=== PATIENT | male | born 1935 | race Caucasian/White ===

== ENCOUNTER 2025-06-02 13:03 | Inpatient (IN) | payer OTHER, SELFPAY ==
[2025-06-01] VITALS (16 sets, daily range): BP systolic 94–124; BP diastolic 49–78; BMI 25.2
[2025-06-01 11:33] LABS: Hematocrit 40.1 % (39.0-52.0); Hemoglobin 13.0 g/dL (13.0-18.0); Mean Corp Hgb Conc. 32.4 g/dL (33.0-37.0); Mean Corpuscular Volume 86.6 fL (80.0-94.0); Nucleated Red Blood Cells % 0 % (-); Platelet Count 400 10^3/uL (130-400); Red Cell Dist. Width 14.5 % (11.5-14.5)
--- NOTE | 2025-06-01 11:36 | ED.GENMED ---
History of Present Illness
<STELLA Ambrocio - Last Filed: 06/07/25 21:26>
General
Chief Complaint: Failure to Thrive
Source: patient and family
Exam Limitations: none
Time Seen by Provider: 06/01/25 11:00
Nursing documentation reviewed up to this point in time: agreed with
History of Present Illness
History of Present Illness:
Patient is an 89-year-old male with past with history of A-fib on Eliquis CHF CAD hypertension hyperlipidemia SD presents to the ER for evaluation of weakness. Patient is for gradual weakness for the past 4 days. No appetite. He denies any fever
chills cough. He denies any urinary frequency urgency. Family also notes that he has been little bit short of breath and he reports some dyspnea on exertion. He denies any lower extremity swelling. He is also in physical therapy for balance
issues and has had some soreness in his bilateral chest and ribs. This started after they started exercises with weights using his upper body.
He reports that he is sore when he takes a deep breath and moves however has no pain at rest.
Phy Exam
<STELLA Ambrocio - Last Filed: 06/07/25 21:26>
General Physical Exam
General Presentation: no apparent distress
General age: appears stated age
General Skin: warm and dry
General Habitus: normal
Cardiovascular Exam
Cardiovascular Exam: irregularly irregular
Pulmonary Exam
Pulmonary Exam: lungs clear and no respiratory distress
Neurological Exam
Neurological Exam: alert
Musculoskeletal Exam
Musculoskeletal Exam: full ROM and other (No lower extremity swelling)
Skin Exam
Skin Exam: normal color and warm/dry
Psychiatric Exam
Psychiatric Exam: normal mood/affect
Course
<STELLA Ambrocio - Last Filed: 06/07/25 21:26>
Orders/Labs/Results
Orders:
Orders
06/01/25 11:24
Basic Metabolic Panel Urgent
Complete Blood Count/With Diff Urgent
06/01/25 11:44
Chest [CR Chest - 2 Views ] Urgent
Comment:
Reason For Exam: cp
06/01/25 12:40
NT-proBNP Urgent
Potassium Urgent
Troponin I Urgent
06/01/25 14:06
Add On- LAB Urgent
Tests Added?: cardiac BNP
06/01/25 14:12
0.9% Sodium Chloride 250 ml [Nss] 250 ml IV BOLUS
06/01/25 14:34
UA Reflex to Culture [Urinalysis Reflex To Culture] Urgent
Date Specimen was Collected: 06/01/25
Time Specimen was Collected: 14:15
Urine Microscopic Reflex Cult Urgent
06/01/25 Dinner
Cholesterol Lowering
At Your Request: Limited Participation
Does patient need a safe tray?: No
Cholesterol Lowering: Sodium, 2 Gram
Oral Supplement (If unsure of flavor order apple or vanilla): Ensure Enlive Vanilla
Supplement Frequency: Daily
06/01/25 17:23
Furosemide [Lasix] 20 mg IV NOW STA
06/01/25 18:25
EKG [Electrocardiogram (*1)] Urgent
Reason for Study: Atrial Fibrillation
06/01/25 18:33
Admit/Transfer Patient As Directed
Co-Sign Provider:
Level of Care: Observation services
Assign to:: Telemetry
Physician / Group: Kena Parikh
Diagnosis: congestive heart failure exacerbation
Reason for Telemetry: Acute Heart Failure
Date to Stop Telemetry: 06/04/25
Time to Stop Telemetry: 11:00
PRN Pain Medication Management As Directed
May give lesser potent ordered pain med per pt: Yes
preference::
Protocol:: Medication orders for pain may be administered in a
manner that supports deferring to patient preference
when the pt is:
- Requesting an ordered lesser potent pain medication.
Least to most potent pain medications are defined
as: acetaminophen < NSAID < tramadol < opioids
(morphine, oxycodone, hydromorphone).
- Requesting a lesser dose of the same medication IF
ORDERED.
- Requesting a less intrusive route of administration
if both routes are prescribed by the provider (PO <
IV).
06/01/25 18:35
Code Status As Directed
Resuscitation Status: Do not resuscitate
Reached after discussion with pt or family/Healthcare POA: Yes
Decision communicated with: patient and family
DNR Bracelet Application ONCE
06/01/25 21:04
Apixaban [Eliquis] 2.5 mg PO BID
06/01/25 21:04
CARDIOLOGY CONSULT Routine
Consulting Provider: Ulices Marie
Was physician already notified: Yes
HF DIETARY CONSULT Routine
HF EDUCATOR CONSULT Routine
Comment:
Activity As Directed
Activity Level: With Assistance
Intake/ Output As Directed
Frequency: Per unit guidelines
Patient Education As Directed
Type: CHF folder
Comment: give on admission. Document in Interdisciplinary Education record
Records Request [Obtain Records] As Directed
Dates of Information to be Released: 2024
Type of Information Requested: Last Office Visit H&P
Obtain Records from: Dr. Camacho with [facility]
Sleep Apnea Assessment by RN As Directed
Comment:
Physician Instructions:
Vital Signs As Directed
Frequency: Per unit guidelines
Weight As Directed
Frequency: Daily
Type of Scale: Standing Scale
Comment: Daily morning weight. If unable to stand, use balanced bed scale.
Weight As Directed
Frequency: Once
Type of Scale: Standing Scale
Comment: Upon Admission. If unable to stand, use balanced bed scale.
Pulse Ox/cont/shift [RESP] Routine
Quantity: 1
Special Instructions: Daily pulse oximetry at rest. If greater than 92% at rest also obtain pulse oximetry
while ambulating as tolerated.
06/01/25 21:51
Pt Screening Request from [facility] Routine
06/01/25 21:52
DIETARY IP CONSULT Routine
Reason for Consult: weight loss, loss of appetite
06/01/25 22:00
Latanoprost [Xalatan Ophthalmic Solution] 1 drop BOTH EYES HS
Timolol Maleate 0.5% [Timoptic 0.5% Ophthalmic Solution] See Dose Instructions OPHTH BID
06/02/25 07:17
Basic Metabolic Panel IN AM
Cardiovascular Evaluation IN AM
06/02/25 08:00
Atorvastatin [Lipitor] 40 mg PO DAILY
FOLic ACID [Folvite] 1 mg PO DAILY
Furosemide [Lasix] 20 mg IV DAILY
06/02/25 09:27
Echo 2D MMode Color/Doppler Routine
Reason for Study: hx CHF, murmur
06/02/25 12:16
Sps Sodium Polystyrene Sulfon [Kayexalate Suspension] 15 grams PO NOW STA
Pt Eval And Treat Routine
Activity Level: As Tolerated
06/02/25 12:20
CT Chest W/o Iv Contrast Routine
Comment:
Reason For Exam: sob, CXR with opacity
Sodium Bicarbonate 650 mg PO TID
06/02/25 12:36
Inpatient/Observation Status Change [Level of Care Change] As Directed
Level of Care: Inpatient admission
Reason for Hospitalization: Ambulatory dysfunction, CHF, possible pleural effusion, hyperkalemia
Expected length of stay greater than two midnights?: Yes
ELOS- Estimated Length of Stay in days: 3
I certify the patient meets the requirements for IP care: Yes
06/02/25 18:00
Aspirin Low Dose EC [Aspir Low (Enteric Coated)] 81 mg PO QPM
Sertraline HCl [Zoloft] 12.5 mg PO QPM
netarsudil [Rhopressa] 1 drop BOTH EYES QPM
06/02/25 21:40
BMP [Basic Metabolic Panel] Routine
06/02/25 22:00
Dorzolamide HCl [Trusopt 2% Ophthalmic Solution] See Dose Instructions BOTH EYES BID
06/03/25 07:59
Basic Metabolic Panel IN AM
Complete Blood Count/With Diff IN AM
06/04/25 06:28
Complete Blood Count/With Diff IN AM
06/04/25 11:00
DC Protocol for Telemetry ONCE
06/05/25 07:01
Complete Blood Count/With Diff IN AM
06/06/25 08:54
Basic Metabolic Panel IN AM
Complete Blood Count/With Diff IN AM
Abnormal Lab Results
06/01/25 06/01/25 06/01/25
11:24 12:40 14:34
RBC 4.63 L 10^6/uL
(4.70-6.10)
MCHC 32.4 L g/dL
(33.0-37.0)
Abs Immat Gran (auto) 0.1 H 10^3/uL
(0-0.05)
Absolute Neuts (auto) 8.5 H 10^3/uL
(1.4-6.5)
Absolute Lymphs (auto) 0.7 L 10^3/uL
(1.2-3.4)
Absolute Monos (auto) 1.3 H 10^3/uL
(0.1-0.6)
Immature Gran % 0.9 H %
(0-0.5)
Neutrophils % 79.5 H %
(42.2-75.2)
Lymphocytes % 6.9 L %
(20.5-51.1)
Monocytes % 12.1 H %
(1.7-9.3)
Sodium 134 L mmol/L
(135-145)
Potassium 5.4 H mmol/L
(3.5-5.1)
Chloride 108 H mmol/L
(98-107)
Carbon Dioxide 17 L mmol/L
(22-30)
BUN 35 H mg/dl
(9-20)
Creatinine
Glucose 138 H mg/dl
(70-99)
Urine Bacteria (Reflex) Few A
(Negative)
Urine Glucose 4+ A
(Negative)
Urine Albumin (Reflex) 1+ A
(Neg - Trace)
06/02/25
07:17
RBC
MCHC
Abs Immat Gran (auto)
Absolute Neuts (auto)
Absolute Lymphs (auto)
Absolute Monos (auto)
Immature Gran %
Neutrophils %
Lymphocytes %
Monocytes %
Sodium 133 L mmol/L
(135-145)
Potassium 5.7 H mmol/L
(3.5-5.1)
Chloride 108 H mmol/L
(98-107)
Carbon Dioxide 16 L mmol/L
(22-30)
BUN 37 H mg/dl
(9-20)
Creatinine 1.4 H mg/dL
(0.7-1.3)
Glucose 135 H mg/dl
(70-99)
Urine Bacteria (Reflex)
Urine Glucose
Urine Albumin (Reflex)
06/01/25 11:24
06/02/25 07:17
Vital Signs
Initial and Last Documented VS:
Initial Vital Signs
Temp Pulse Resp BP Pulse Ox
98.5 F 84 16 108/69 96
06/01/25 09:40 06/01/25 09:40 06/01/25 09:40 06/01/25 09:40 06/01/25 09:40
Last Documented Vital Signs
Temp Pulse Resp BP Pulse Ox
97.5 F 92 20 96/61 95
06/07/25 19:09 06/07/25 19:15 06/07/25 19:15 06/07/25 18:00 06/07/25 19:15
<Aileen Middleton PA-C - Last Filed: 06/01/25 19:06>
Orders/Labs/Results
Orders:
Orders
06/01/25 11:24
Basic Metabolic Panel Urgent
Complete Blood Count/With Diff Urgent
06/01/25 11:44
Chest [CR Chest - 2 Views ] Urgent
Comment:
Reason For Exam: cp
06/01/25 12:40
NT-proBNP Urgent
Potassium Urgent
Troponin I Urgent
06/01/25 14:06
Add On- LAB Urgent
Tests Added?: cardiac BNP
06/01/25 14:12
0.9% Sodium Chloride 250 ml [Nss] 250 ml IV BOLUS
06/01/25 14:34
UA Reflex to Culture [Urinalysis Reflex To Culture] Urgent
Date Specimen was Collected: 06/01/25
Time Specimen was Collected: 14:15
Urine Microscopic Reflex Cult Urgent
06/01/25 Dinner
Cholesterol Lowering
At Your Request: Limited Participation
Does patient need a safe tray?: No
Cholesterol Lowering: Sodium, 2 Gram
Oral Supplement (If unsure of flavor order apple or vanilla): Ensure Enlive Vanilla
Supplement Frequency: Daily
06/01/25 17:23
Furosemide [Lasix] 20 mg IV NOW STA
06/01/25 18:25
EKG [Electrocardiogram (*1)] Urgent
Reason for Study: Atrial Fibrillation
06/01/25 18:33
Admit/Transfer Patient As Directed
Co-Sign Provider:
Level of Care: Observation services
Assign to:: Telemetry
Physician / Group: Kena Parikh
Diagnosis: congestive heart failure exacerbation
Reason for Telemetry: Acute Heart Failure
Date to Stop Telemetry: 06/04/25
Time to Stop Telemetry: 11:00
PRN Pain Medication Management As Directed
May give lesser potent ordered pain med per pt: Yes
preference::
Protocol:: Medication orders for pain may be administered in a
manner that supports deferring to patient preference
when the pt is:
- Requesting an ordered lesser potent pain medication.
Least to most potent pain medications are defined
as: acetaminophen < NSAID < tramadol < opioids
(morphine, oxycodone, hydromorphone).
- Requesting a lesser dose of the same medication IF
ORDERED.
- Requesting a less intrusive route of administration
if both routes are prescribed by the provider (PO <
IV).
06/01/25 18:35
Code Status As Directed
Resuscitation Status: Do not resuscitate
Reached after discussion with pt or family/Healthcare POA: Yes
Decision communicated with: patient and family
DNR Bracelet Application ONCE
06/01/25 21:04
Apixaban [Eliquis] 2.5 mg PO BID
06/01/25 21:04
CARDIOLOGY CONSULT Routine
Consulting Provider: Ulices Marie
Was physician already notified: Yes
HF DIETARY CONSULT Routine
HF EDUCATOR CONSULT Routine
Comment:
Activity As Directed
Activity Level: With Assistance
Intake/ Output As Directed
Frequency: Per unit guidelines
Patient Education As Directed
Type: CHF folder
Comment: give on admission. Document in Interdisciplinary Education record
Records Request [Obtain Records] As Directed
Dates of Information to be Released: 2024
Type of Information Requested: Last Office Visit H&P
Obtain Records from: Dr. Camacho with [facility]
Sleep Apnea Assessment by RN As Directed
Comment:
Physician Instructions:
Vital Signs As Directed
Frequency: Per unit guidelines
Weight As Directed
Frequency: Daily
Type of Scale: Standing Scale
Comment: Daily morning weight. If unable to stand, use balanced bed scale.
Weight As Directed
Frequency: Once
Type of Scale: Standing Scale
Comment: Upon Admission. If unable to stand, use balanced bed scale.
Pulse Ox/cont/shift [RESP] Routine
Quantity: 1
Special Instructions: Daily pulse oximetry at rest. If greater than 92% at rest also obtain pulse oximetry
while ambulating as tolerated.
06/01/25 21:51
Pt Screening Request from [facility] Routine
06/01/25 21:52
DIETARY IP CONSULT Routine
Reason for Consult: weight loss, loss of appetite
06/01/25 22:00
Latanoprost [Xalatan Ophthalmic Solution] 1 drop BOTH EYES HS
Timolol Maleate 0.5% [Timoptic 0.5% Ophthalmic Solution] See Dose Instructions OPHTH BID
06/02/25 07:17
Basic Metabolic Panel IN AM
Cardiovascular Evaluation IN AM
06/02/25 08:00
Atorvastatin [Lipitor] 40 mg PO DAILY
FOLic ACID [Folvite] 1 mg PO DAILY
Furosemide [Lasix] 20 mg IV DAILY
06/02/25 09:27
Echo 2D MMode Color/Doppler Routine
Reason for Study: hx CHF, murmur
06/02/25 12:16
Sps Sodium Polystyrene Sulfon [Kayexalate Suspension] 15 grams PO NOW STA
Pt Eval And Treat Routine
Activity Level: As Tolerated
06/02/25 12:20
CT Chest W/o Iv Contrast Routine
Comment:
Reason For Exam: sob, CXR with opacity
Sodium Bicarbonate 650 mg PO TID
06/02/25 12:36
Inpatient/Observation Status Change [Level of Care Change] As Directed
Level of Care: Inpatient admission
Reason for Hospitalization: Ambulatory dysfunction, CHF, possible pleural effusion, hyperkalemia
Expected length of stay greater than two midnights?: Yes
ELOS- Estimated Length of Stay in days: 3
I certify the patient meets the requirements for IP care: Yes
06/02/25 18:00
Aspirin Low Dose EC [Aspir Low (Enteric Coated)] 81 mg PO QPM
Sertraline HCl [Zoloft] 12.5 mg PO QPM
netarsudil [Rhopressa] 1 drop BOTH EYES QPM
06/02/25 21:40
BMP [Basic Metabolic Panel] Routine
06/02/25 22:00
Dorzolamide HCl [Trusopt 2% Ophthalmic Solution] See Dose Instructions BOTH EYES BID
06/03/25 07:59
Basic Metabolic Panel IN AM
Complete Blood Count/With Diff IN AM
06/04/25 06:28
Complete Blood Count/With Diff IN AM
06/04/25 11:00
DC Protocol for Telemetry ONCE
06/05/25 07:01
Complete Blood Count/With Diff IN AM
06/06/25 08:54
Basic Metabolic Panel IN AM
Complete Blood Count/With Diff IN AM
Abnormal Lab Results
06/01/25 06/01/25 06/01/25
11:24 12:40 14:34
RBC 4.63 L 10^6/uL
(4.70-6.10)
MCHC 32.4 L g/dL
(33.0-37.0)
Abs Immat Gran (auto) 0.1 H 10^3/uL
(0-0.05)
Absolute Neuts (auto) 8.5 H 10^3/uL
(1.4-6.5)
Absolute Lymphs (auto) 0.7 L 10^3/uL
(1.2-3.4)
Absolute Monos (auto) 1.3 H 10^3/uL
(0.1-0.6)
Immature Gran % 0.9 H %
(0-0.5)
Neutrophils % 79.5 H %
(42.2-75.2)
Lymphocytes % 6.9 L %
(20.5-51.1)
Monocytes % 12.1 H %
(1.7-9.3)
Sodium 134 L mmol/L
(135-145)
Potassium 5.4 H mmol/L
(3.5-5.1)
Chloride 108 H mmol/L
(98-107)
Carbon Dioxide 17 L mmol/L
(22-30)
BUN 35 H mg/dl
(9-20)
Creatinine
Glucose 138 H mg/dl
(70-99)
Urine Bacteria (Reflex) Few A
(Negative)
Urine Glucose 4+ A
(Negative)
Urine Albumin (Reflex) 1+ A
(Neg - Trace)
06/02/25
07:17
RBC
MCHC
Abs Immat Gran (auto)
Absolute Neuts (auto)
Absolute Lymphs (auto)
Absolute Monos (auto)
Immature Gran %
Neutrophils %
Lymphocytes %
Monocytes %
Sodium 133 L mmol/L
(135-145)
Potassium 5.7 H mmol/L
(3.5-5.1)
Chloride 108 H mmol/L
(98-107)
Carbon Dioxide 16 L mmol/L
(22-30)
BUN 37 H mg/dl
(9-20)
Creatinine 1.4 H mg/dL
(0.7-1.3)
Glucose 135 H mg/dl
(70-99)
Urine Bacteria (Reflex)
Urine Glucose
Urine Albumin (Reflex)
06/01/25 11:24
06/02/25 07:17
Vital Signs
Initial and Last Documented VS:
Initial Vital Signs
Temp Pulse Resp BP Pulse Ox
98.5 F 84 16 108/69 96
06/01/25 09:40 06/01/25 09:40 06/01/25 09:40 06/01/25 09:40 06/01/25 09:40
Last Documented Vital Signs
Temp Pulse Resp BP Pulse Ox
97.5 F 92 20 96/61 95
06/07/25 19:09 06/07/25 19:15 06/07/25 19:15 06/07/25 18:00 06/07/25 19:15
<STELLA Ambrocio - Last Filed: 06/07/25 21:26>
MDM/Problems Addressed
MDM/Problems Addressed:
89-year-old male presents from home with family. Patient has had increasing weakness over the past several days. He is in therapy for balance issues and has noted to be weak over the past several days associate with decreased appetite and
decreased p.o. intake. In addition patient was been working with weights and has had some soreness in his chest. No recent fever or chills he denies any urinary symptoms he is afebrile with normal white count stable hemoglobin stable. His BUN is
minimally elevated though he does have a history of CHF. small 250 ml fluid bolus ordered. There is pleural effusion on x-ray. His troponin is negative. Currently BMP and urine pending at this time patient will likely need admission for weakness
deconditioning dehydration. Chest discomfort likely muscular
Ua/ BNP pending ; care of pt at this time transferred to Karthik Castro
<STELLA Ambrocio - Last Filed: 06/07/25 21:26>
*Radiology
Radiology exam reviewed: radiology read reviewed
*Pulse Oximetry
SaO2: 96
Oxygen Mode of Delivery: Room air
Patient hypoxic: no
<Aileen Middleton PA-C - Last Filed: 06/01/25 19:06>
*Critical Care Note
Total Time (30-74mins, 75-104mins- exclusive of procedures): Not Applicable
<Aileen Middleton PA-C - Last Filed: 06/01/25 19:06>
Update Note
Update Note:
Per previous provider patient is an 89-year-old male with multiple comorbidities including CAD, atrial fibrillation, CHF, hypertension, hyperlipidemia who presents accompanied by family for evaluation of generalized weakness over the past several
days. Patient has had decreased oral intake and a poor appetite. On arrival, patient's vital signs were stable, he was afebrile. On exam, patient was reportedly well-appearing and in no acute distress. Labs were obtained that were largely
nonactionable other than a slightly elevated BUN. Patient is currently pending urinalysis and BNP results. However anticipate the patient will need to be admission for his generalized weakness and overall decline.
Urinalysis is contaminated but is not concerning for infection. BNP is elevated at 3790. Patient states that he takes torsemide on an as needed basis but has not had to take it recently. Will give a dose of IV furosemide here and admit to the
hospital for further diuresis and reevaluation. Plan was discussed with the patient and his family who expressed understanding and agreed. Patient signed out to the hospitalist without complication.
ED Attending Note
<STELLA Ambrocio - Last Filed: 06/07/25 21:26>
-
Portions of this chart may have been created with voice recognition software.� Occasional wrong word or��sound alike� substitutions may have occurred due to the inherent limitations of voice recognition software.
Discharge Plan
Departure
Patient Disposition: Admit
Date of Disposition: 06/01/25
Time of Disposition: 17:26
Presentation/result/management discussed w/ accepting MD/DO: Hospitalist
Discharge Problem:
Elevated brain natriuretic peptide (BNP) level, Generalized weakness, Decreased oral intake
Interventions
Interventions:
*Risk Screen - Suicide Last Done: 06/01/25 21:37
*General Assessment Last Done: 06/01/25 11:37
*Neglect/Abuse Screening Last Done: 06/01/25 11:37
*ED COVID-19 Vaccine History Last Done: 06/01/25 21:37
*Nursing Disposition Last Done: 06/01/25 21:12
Discharge Date and Time
Discharge Date/Time: 06/01/25 21:12
[2025-06-01 11:59] LABS: Blood Urea Nitrogen 35 mg/dl (9-20); Calcium 8.6 mg/dl (8.4-10.2); Carbon Dioxide 17 mmol/L (22-30); Chloride 108 mmol/L (98-107); Glucose 138 mg/dl (70-99); Sodium 134 mmol/L (135-145); eGFR 52.84
[2025-06-01 13:05] LABS: Potassium 5.4 mmol/L (3.5-5.1)
[2025-06-01 13:20] LABS: Troponin I < 0.012 ng/ml
[2025-06-01] MEDS: NSS 250 IV (14:20)
[2025-06-01 14:44] LABS: Urine Character Clear (Clear)
[2025-06-01 14:58] LABS: Urine Squamous Cell >30 /LPF (Few)
[2025-06-01 14:59] LABS: Urine Red Blood Cell 0-2 /HPF (0-2)
[2025-06-01] MEDS: LASIX 20 MG IV (17:35)
--- NOTE | 2025-06-01 17:35 | HPS.HSE ---
Addendum entered and electronically signed by Kena Parikh MD 06/01/25 18:45:
Cardiology consulted.
Addendum entered and electronically signed by Kena Parikh MD 06/01/25 18:44:
This is an addendum to H&P written by Amber Bryant on 06/01/2025. �Patient seen and examined dependently with BILINGUAL OFFICE ASSISTANT.
89-year-old male past medical history of atrial fibrillation on Eliquis, CAD, CHF, hypertension, hyperlipidemia, depression, celiac disease, presenting with generalized weakness, poor p.o. intake 3 to 4 days. �Patient had mild dizziness almost
passed a few days ago. �Complain of shortness of breath today with no shortness of breath currently.
Patient sees Dr. Camacho at [facility].
Also with left-sided abdominal pain with ongoing constipation, small bowel movement yesterday
Vital signs show blood pressure 108/178, down to 94/59.
Labs show potassium 5.4 cardiac BNP of 3700. �Chest x-ray shows dense opacification of the mid to lower left hemithorax which could represent pleural effusion. Urinalysis negative.
Patient with likely mild CHF exacerbation. �Patient given IV fluids initially and then 20 IV Lasix with mild hypotension now resolved. �Will try to diurese with 20 IV Lasix tomorrow. �Obtain records from [facility]ology.
Hyperkalemia secondary to valsartan/spironolactone which should be held.
Continue to monitor constipation, will require MiraLAX if no bowel movement tomorrow.
Original Note:
Family Physician
-
Family Physician: Francis Lama MD
Chief Complaint
-
generalized weakness
History of Present Illness
Patient is a 89-year-old male with past medical history significant for atrial fibrillation, hypertension, hyperlipidemia and congestive heart failure who presented to [facility] ED for evaluation of generalized weakness. Patient reports that he has had
overall generalized weakness for past 3-4 days with poor appetite and PO intake. He denies any recent weight gain or weight loss. He reports being unable to get up from bed this morning so family brought in for evaluation. He denies any fever,
chills, cough, shortness of breath, chest pain, nausea, vomiting, diarrhea or urinary symptoms.
Medical History
Past Medical History
Past Medical History: Reports Other
Additional Past Medical History:
atrial fibrillation
hypertension
hyperlipidemia
congestive heart failure
CAD
anemia
depression
celiac disease
Hx hemorrahgic CVA
Past Surgical History: Reports Other
Additional Past Surgical History:
kevin holes
appendectomy
cardiac stent
tonsillectomy
MOHS for BCC
Social History
Tobacco: Non-smoker
Personal:
Living: With Family
Family History
Family History: Other (Mother: mastitis gravis; Father: ASCVD)
Allergies / Home Medications
Allergies reflects when Allergies were last updated in [facility].
Home Medications with original date entered in [facility]
Allergy/Medication List:
Allergies
Allergy/AdvReac Type Severity Reaction Status Date / Time
No Known Allergies Allergy Unverified 06/01/25 09:44
Home Medications
apixaban 2.5 mg tablet (Eliquis) 2.5 mg PO BID 06/01/25
aspirin 81 mg tablet,delayed release 81 mg PO QPM 06/01/25
atorvastatin 40 mg tablet (Lipitor) 40 mg PO DAILY 06/01/25
dorzolamide-timolol (PF) 2 %-0.5 % eye drops in a dropperette 1 drp BOTH EYES BID 06/01/25
empagliflozin 10 mg tablet (Jardiance) 10 mg PO DAILY 06/01/25
folic acid 1 mg tablet 1 mg PO DAILY 06/01/25
latanoprost 0.005 % eye drops 1 drp BOTH EYES HS 06/01/25
netarsudil 0.02 % eye drops (Rhopressa) 1 drp BOTH EYES QPM 06/01/25
sertraline 25 mg tablet 12.5 mg PO QPM 06/01/25
spironolactone 25 mg tablet 25 mg PO DAILY 06/01/25
valsartan 40 mg tablet 20 mg PO QPM 06/01/25
Review of Systems
-
History Source: Patient
Constitutional: Reports No Symptoms
EENT: Reports No Symptoms
Respiratory: Reports No Symptoms
Cardiac: Reports No Symptoms
Abdomen/GI: Reports Anorexia (poor appetite and poor PO intake )
: Reports No Symptoms
Musculoskeletal: Reports No Symptoms
Skin: Reports No Symptoms
Neurological: Reports Weakness (generalized )
Endocrine: Reports No Symptoms
Hematologic/Lymphatic: Reports No Symptoms
Psych: Reports No Symptoms
Physical Exam
Vital Signs
Vital Signs
Temp Pulse Resp BP Pulse Ox
98.5 F 90 22 109/65 95
06/01/25 09:40 06/01/25 16:15 06/01/25 16:15 06/01/25 16:00 06/01/25 16:15
Physical Exam
General: Well Developed, Well Nourished and No Apparent Distress
HEENT: NormoCephalic, Moist mucous membranes and Atraumatic
Respiratory: Clear, Non Labored Respirations and Decreased Breath Sounds
Cardiac: S1/S2, Irregular Rhythm and Murmur; No Rub or Gallop
GI: Soft, Non Tender, Non Distended and Normal Bowel Sounds; No Organomegaly
Rectal: Deferred by Provider
Genito-urinary: Deferred by me
Musculoskeletal: No Clubbing, No Cyanosis and No Edema
Skin: Warm and IV/Catheter Site
Neuro: Awake, AO x 3 and Nonfocal/grossly intact
Psych: Calm
Laboratory Results
-
06/01/25 11:24
06/01/25 12:40
Laboratory Results
Total Bilirubin Cancelled 06/01/25 11:24
AST Cancelled 06/01/25 11:24
ALT Cancelled 06/01/25 11:24
Alkaline Phosphatase Cancelled 06/01/25 11:24
Troponin I < 0.012 ng/ml 06/01/25 12:40
Data Reviewed
-
Diagnostic Radiology: Report Reviewed by me (CXR: Dense opacification of the mid to lower left hemithorax which at least in part could represent pleural effusion. No pneumothorax.)
Lab Data: Labs Reviewed by me (Na+ 134, K+5.4, BUN 138, pBNP 3790)
Impression/Plan
-
IMPRESSION/PLAN:
#congestive heart failure exacerbation
Na+ 134, K+5.4, BUN 138, pBNP 3790
CXR: Dense opacification of the mid to lower left hemithorax which at least in part could represent pleural effusion.
No pneumothorax.
- Admit to telemetry
- Cardiology consult
- Obtain records, Dr. Camacho with [facility]
- daily weights
- I & Os
- hold Jardiance
#atrial fibrillation
- continue Eliquis
#hypertension
- hold valsartan
#hyperlipidemia
- continue atorvastatin
#CAD
- continue aspirin
#depression
- continue sertraline
#anemia
#celiac disease
Code status: DNR
DVT prophylaxis: lovenox sq
[2025-06-01] MEDS: TIMOPTIC 0.5% OPHTHALMIC SOLUTION 1 DROP OPHTH (21:57)
[2025-06-01] MEDS: XALATAN OPHTHALMIC SOLUTION 1 DROP BOTH EYES (21:57)
[2025-06-01] MEDS: ELIQUIS 2.5 MG PO (21:57)
[2025-06-02] VITALS (7 sets, daily range): BP systolic 98–119; BP diastolic 58–69; PULSE 78; O2SAT 95; BMI 25.0
--- NOTE | 2025-06-02 08:09 | CON.CAR ---
Addendum entered and electronically signed by Shorty Mckeon MD 06/02/25 15:33:
Patient seen and examined in collaboration with PROJECTION TECHNICIAN; agree with below.
- 89-year-old male with permanent atrial fibrillation (on Eliquis), remote CAD, and chronic HFpEF presenting with decreased PO intake and generalized weakness over the past 3 days. Patient was given IV fluids in the ER, then developed mild CHF
whereby Lasix was initiated.
- Echocardiogram today revealed an LVEF of 60-65%, mild mitral regurgitation, and mild tricuspid regurgitation (PASP 30 mmHg).
- The patient currently does not appear to have any overt clinical CHF.
- Recommend discontinuing Lasix.
- Patient can follow-up with his primary Tab Cutting Machine Operator as an outpatient; no further cardiac recommendations at this time.
Original Note:
Consultation
Consultation Request
Date/Time Consultation Requested: 06/01/252103
Date/Time Consultation Performed: 06/02/25813
Requesting Provider: Ann Marie Bryant NP
Performing Provider: Denise DOUGLAS for Dr. Mckeon
Reason for Consultation: CHF
Medical History
-
Chief Complaint: weakness
History of Present Illness:
89 y/o male (patient of Dr. Camacho, [facility]) with permanent AFIB on Eliquis, HX DC/ CAD with hx BMS to RCA (patient thinks 2005), HFpEF, mild to moderate AR and MR, hypertension, dyslipidemia, and hemorrhagic stroke who is here for
evaluation of generalized weakness x 3 days. He also has had poor appetite. He denies SOB, though has slightly increased WOB during my assessment. He denies any PND. Sleeps with 2 pillows chronically for comfort. No weight gain- weight is down from
baseline. He originally got small bolus of IVF in ER due to suspected dehydration, but now is admitted for suspected CHF and is being diuresed. BNP 3790. CXR with left-sided pleural effusion. Denies fever/chills. No CP. He is in no distress at the
time of my assessment. Records personally requested and received from [facility] cardiology.
Past Medical History
Past Medical History: Arrhythmias, CAD, CHF, CVA (bleed), HTN and Hypercholesterolemia
Social History
Tobacco: Non-Smoker
Personal:
Family History
Family History: Reviewed & Not Pertinent
Allergies / Home Medications
Allergy/AdvReac Type Severity Reaction Status Date / Time
gluten Allergy Unknown Verified 06/02/25 02:43
�Medication �Instructions �Recorded �Confirmed �Type
apixaban 2.5 mg tablet (Eliquis) 2.5 mg PO BID 06/01/25 06/01/25 History
aspirin 81 mg tablet,delayed 81 mg PO QPM 06/01/25 06/01/25 History
release
atorvastatin 40 mg tablet (Lipitor) 40 mg PO DAILY 06/01/25 06/01/25 History
dorzolamide-timolol (PF) 2 %-0.5 % 1 drp BOTH EYES BID 06/01/25 06/01/25 History
eye drops in a dropperette
empagliflozin 10 mg tablet 10 mg PO DAILY 06/01/25 06/01/25 History
(Jardiance)
folic acid 1 mg tablet 1 mg PO DAILY 06/01/25 06/01/25 History
latanoprost 0.005 % eye drops 1 drp BOTH EYES HS 06/01/25 06/01/25 History
netarsudil 0.02 % eye drops 1 drp BOTH EYES QPM 06/01/25 06/01/25 History
(Rhopressa)
sertraline 25 mg tablet 12.5 mg PO QPM 06/01/25 06/01/25 History
spironolactone 25 mg tablet 25 mg PO DAILY 06/01/25 06/01/25 History
valsartan 40 mg tablet 20 mg PO QPM 06/01/25 06/01/25 History
Review of Systems
-
History Source: Patient
All other systems: Negative unless noted
Constitutional: Other (general weakness, poor appetite)
Physical Exam
Vital Signs
Temp Pulse Resp BP Pulse Ox
98.1 F 82 16 111/60 94
06/02/25 03:38 06/02/25 03:38 06/02/25 03:38 06/02/25 03:38 06/02/25 03:38
Lab Results
06/01/25 11:24
Troponin I < 0.012 ng/ml 06/01/25 12:40
Qvx-N-Pfbrjuvxgru Pept 3790 pg/ml 06/01/25 12:40
Physical Exam
General: Well Developed, Well Nourished and No Apparent Distress
HEENT: Normocephalic and Anicteric
Respiratory: Other (left base- diminished sounds)
Cardiac: Irregular Rhythm, Murmur (III/ high-pitched systolic murmur) and Peripheral Edema (trace BLE edema)
Skin: Warm and Dry
Neuro: AO x 3
Psych: Calm
Impression / Plan
-
Weakness, poor appetite:
-etiology not clear. There has been some weight loss as well.
-cardiac assessment/w/u as below. Would consider other causes as well per IM.
Hyperkalemia:
-spironolactone and valsartan held
-management per primary
HFpEF, chronic:
-despite elevated pro-BNP, he does not appear volume overloaded to my assessment. He does not have significant edema, he has had weight loss. No PND. Additionally, creatinine worsened with IV lasix. CXR with pleural effusion, but unilateral and
left-sided- consider IR c/s for tap?
-he has a high-pitched systolic murmur- check echo
-would stop IV Lasix
-on SGLT2I as OP, also on spironolactone- tells me he takes PRN lasix (20 mg) for weight gain, but rarely needs it
AFIB, permanent:
-asymptomatic. He is rate-controlled without rate agent. Per OP chart, BB stopped in past for bradycardia.
-he is on Eliquis at lower dose- He tells me that is on purpose per his geoscientist due to his history of brain bleed- defer to primary geoscientist
CAD with hx stenting 2005:
-no CP, trop WNL
-continue ASA, statin
-cardiac perfusion PET 10/2024 showed no evidence for ischemia
Data Reviewed
-
EKG: Tracing Personally Visualized and interpreted (AFIB 92 BPM)
Radiology: Report Reviewed by me (CXR: Dense opacification of the mid to lower left hemithorax which at least in part could represent pleural effusion. No pneumothorax.)
Medical Tests (Nuc Med, Echo etc): Other (echo ordered. Previous echo 09/13/24: EF 60-65%, mild to moderate AR and MR)
Labs: Labs Reviewed by me
Old Records: Requested and Reviewed
[2025-06-02 09:08] LABS: Blood Urea Nitrogen 37 mg/dl (9-20); Calcium 8.6 mg/dl (8.4-10.2); Carbon Dioxide 16 mmol/L (22-30); Chloride 108 mmol/L (98-107); Estimated Creatinine Clearance 33 ml/min; Glucose 135 mg/dl (70-99); HDL Cholesterol 22 mg/dl; LDL Cholesterol, Calculated 24 mg/dl; Potassium 5.7 mmol/L (3.5-5.1); Sodium 133 mmol/L (135-145); Very Low Density Lipoprotein 9 mg/dl (0-30); eGFR 48.34
[2025-06-02] MEDS: FOLVITE 1 MG PO (09:48)
[2025-06-02] MEDS: LASIX 20 MG IV (09:48)
[2025-06-02] MEDS: ELIQUIS 2.5 MG PO ×2 (09:48→20:17)
[2025-06-02] MEDS: LIPITOR 40 MG PO (09:49)
[2025-06-02] MEDS: TIMOPTIC 0.5% OPHTHALMIC SOLUTION 1 DROP OPHTH ×2 (09:49→20:17)
--- NOTE | 2025-06-02 12:14 | W.PN.HOSP.TC ---
Today's Communication/Plan
-
monitor vitals
see plan
echo
kayaxelate
repeat bmp later today
monitor renal function
CT chest
Assessment / Plan
Assessment / Plan
General: Well Developed, Well Nourished and No Apparent Distress
HEENT: NormoCephalic, Moist mucous membranes and Atraumatic
Respiratory: Clear, Non Labored Respirations and Decreased Breath Sounds
Cardiac: S1/S2, Irregular Rhythm and Murmur
GI: Soft, Non Tender, Non Distended and Normal Bowel Sounds
Musculoskeletal: No Edema
Neuro: Awake, AO x 3 and Nonfocal/grossly intact
Psych: Calm
CHF with preserved EF
Na+ 134, K+5.4, BUN 138, pBNP 3790
CXR: Dense opacification of the mid to lower left hemithorax which at least in part could represent pleural effusion.
No pneumothorax.
Cardiology following, does not think patient has acute exacerbation. Per patient he did urinate a lot after IV Lasix yesterday in the ED. He has no lower extremity edema. Agree with checking echo with high-pitched systolic murmur.
- Obtain records, Dr. Camacho with [facility]
- daily weights
- I & Os
- hold Jardiance
CXR noted with opacity; check CT chest to better characterize
Weakness, ambulatory dysfunction
PT evaluation
Permanent atrial fibrillation
Rate controlled
Unsure why she is on lower dose of Eliquis, defer to cardiology
- continue Eliquis
Renal insufficiency, unknown baseline however suspect likely CKD
Continue to monitor renal function
UA not suggestive of UTI
Repeat BMP later today
Hyponatremia
Monitor
Metabolic acidosis
Sodium bicarb
Monitor
Hyperkalemia
Hold Aldactone, losartan
Monitor
Kayexalate
#hypertension
- hold Aldactone, losartan
Monitor
hyperlipidemia
- continue atorvastatin
CAD with history of stenting 2005
- continue aspirin
#depression
- continue sertraline
anemia, likely of chronic disease
celiac disease
Code status: DNR
DVT prophylaxis: Eliquis
I spent a total of 52 minutes with the patient or on the floor. More than 50% of this time involved counseling and coordination of care.
Anticipated Discharge: > 48 hours
Subjective/Interval History
-
Date of Service: June 02, 2025
Denies chest pain
Objective Data
-
Labs:
Laboratory Results
06/02/25
07:17
Sodium 133 L
Potassium 5.7 H
Chloride 108 H
Carbon Dioxide 16 L
BUN 37 H
Creatinine 1.4 H
Glucose 135 H
Calcium 8.6
Vital Signs:
Vital Signs
Temp Pulse Resp BP Pulse Ox
97.4 F 90 24 114/69 94
06/02/25 07:35 06/02/25 09:48 06/02/25 07:35 06/02/25 09:48 06/02/25 07:35
I&O
06/01/25 06/02/25 06/03/25
06:59 06:59 06:59
Output Total 375 / 375
Balance -375 / -375
[2025-06-02] MEDS: SODIUM BICARBONATE 650 MG PO ×3 (12:55→21:12)
[2025-06-02] MEDS: KAYEXALATE SUSPENSION 15 GRAMS PO (12:55)
[2025-06-02] MEDS: ASPIR LOW (ENTERIC COATED) 81 MG PO (17:21)
[2025-06-02] MEDS: ZOLOFT 12.5 MG PO (17:21)
[2025-06-02] MEDS: XALATAN OPHTHALMIC SOLUTION 1 DROP BOTH EYES (21:12)
[2025-06-02] MEDS: TRUSOPT 2% OPHTHALMIC SOLUTION 1 DROP BOTH EYES (21:12)
[2025-06-02 22:07] LABS: Calcium 8.0 mg/dl (8.4-10.2); Carbon Dioxide 17 mmol/L (22-30); Chloride 105 mmol/L (98-107); Estimated Creatinine Clearance 35 ml/min; Glucose 143 mg/dl (70-99); Potassium 4.7 mmol/L (3.5-5.1); Sodium 129 mmol/L (135-145); eGFR 52.84
[2025-06-02 22:18] LABS: Blood Urea Nitrogen 41 mg/dl (9-20)
[2025-06-03] VITALS (8 sets, daily range): BP systolic 91–120; BP diastolic 50–68; BMI 24.7
[2025-06-03 08:13] LABS: Glucose - Point of Care 123 mg/dl (70-99)
[2025-06-03] MEDS: ELIQUIS 2.5 MG PO ×2 (09:15→21:22)
[2025-06-03] MEDS: LIPITOR 40 MG PO (09:15)
[2025-06-03] MEDS: TIMOPTIC 0.5% OPHTHALMIC SOLUTION 1 DROP OPHTH ×2 (09:15→21:23)
[2025-06-03] MEDS: SODIUM BICARBONATE 650 MG PO ×3 (09:16→21:23)
[2025-06-03] MEDS: FOLVITE 1 MG PO (09:16)
[2025-06-03] MEDS: TRUSOPT 2% OPHTHALMIC SOLUTION 1 DROP BOTH EYES ×2 (09:16→21:24)
--- NOTE | 2025-06-03 09:19 | CON.PUL ---
Consultation
Consultation Request
Date/Time Consultation Requested: 06/03/25
Date/Time Consultation Performed: 06/03/25
Performing Provider: Veronica
Reason for Consultation: Effusion
Medical History
-
History of Present Illness:
Patient is an 89-year-old male with previous history of A-fib on Eliquis, CAD, congestive heart failure, hypertension presenting with poor p.o. intake, generalized weakness, dizziness, shortness of breath over the past 3 to 4 days. Initial
demonstrating proBNP of 3700, chest x-ray demonstrating pleural effusion. Underwent thoracentesis today with improvement of complaints. Initial fluid chemistry suggesting exudative fluid but he is maintained on diuretics as an outpatient.
Denies any prior known history of lung disease, he was a former respiratory therapist.
Past Medical History
Past Medical History: Other (see list below)
Social History
Tobacco: Non-smoker
Alcohol: None
Drug: None
Family History
Family History: Reviewed & Not Pertinent
Allergies / Home Medications
Allergies
Allergy/AdvReac Type Severity Reaction Status Date / Time
gluten Allergy Unknown Verified 06/02/25 02:43
Home Medications
�Medication �Instructions �Recorded �Confirmed �Last Taken �Type
apixaban 2.5 mg tablet (Eliquis) 2.5 mg PO BID 06/01/25 06/01/25 05/31/25 History
aspirin 81 mg tablet,delayed 81 mg PO QPM 06/01/25 06/01/25 05/31/25 History
release
atorvastatin 40 mg tablet (Lipitor) 40 mg PO DAILY 06/01/25 06/01/25 05/31/25 History
dorzolamide-timolol (PF) 2 %-0.5 % 1 drp BOTH EYES BID 06/01/25 06/01/25 05/31/25 History
eye drops in a dropperette
empagliflozin 10 mg tablet 10 mg PO DAILY 06/01/25 06/01/25 05/31/25 History
(Jardiance)
folic acid 1 mg tablet 1 mg PO DAILY 06/01/25 06/01/25 05/31/25 History
latanoprost 0.005 % eye drops 1 drp BOTH EYES HS 06/01/25 06/01/25 05/31/25 History
netarsudil 0.02 % eye drops 1 drp BOTH EYES QPM 06/01/25 06/01/25 05/31/25 History
(Rhopressa)
sertraline 25 mg tablet 12.5 mg PO QPM 06/01/25 06/01/25 05/31/25 History
spironolactone 25 mg tablet 25 mg PO DAILY 06/01/25 06/01/25 05/31/25 History
valsartan 40 mg tablet 20 mg PO QPM 06/01/25 06/01/25 05/31/25 History
Review of Systems
-
History Source: Patient
All other systems: Negative unless noted
Vitals / Labs / Diagnostic Testing
Vital Signs
Temp Pulse Resp BP Pulse Ox
98.4 F 98 16 120/68 92
06/03/25 07:55 06/03/25 07:55 06/03/25 07:55 06/03/25 07:55 06/03/25 07:55
Diagnostic Testing:
Physical Exam
-
HEENT: Normocephalic, Anicteric, Moist Mucous Membranes and Other (poor dentition)
Cardiovascular: S1/S2 and Regular Rhythm
Respiratory: Rales and Non-Labored Respirations
GI: Soft, Non Distended and Non Tender
Neurology: Awake, Alert, Oriented and No Motor Deficits
Skin: Warm, Dry and Good Color
General: Comfortable and Other (NAD)
Assessment
-
Patient is an 89-year-old male with previous history of A-fib on Eliquis, CAD, congestive heart failure, hypertension presenting with poor p.o. intake, generalized weakness, dizziness, shortness of breath over the past 3 to 4 days. Initial
demonstrating proBNP of 3700, chest x-ray demonstrating pleural effusion. Underwent thoracentesis today with improvement of complaints. Initial fluid chemistry suggesting exudative fluid but he is maintained on diuretics as an outpatient. We are
consulted for evaluation
Pleural effusion status post thoracentesis 06/03/2025
Acute heart failure exacerbation
Leukocytosis, mild
Hyponatremia, mild
Metabolic acidosis
Decreased p.o. intake
Shortness of breath with exertion
Generalized weakness
Conditions present prior to admission
atrial fibrillation
hypertension
hyperlipidemia
congestive heart failure
CAD
anemia
depression
celiac disease
Hx hemorrahgic CVA s/p kevin holes
appendectomy
cardiac stent
tonsillectomy
MOHS for BCC
Plan
No oxygen was needed on admission, currently saturating 92-93% on RA
Prior history of lung disease is NOT noted --nonsmoker, prior imaging not available for review
Suspect patient has congestive heart failure diagnosis with preserved EF
CXR/CT obtained indicating pleural effusions
Underwent thoracentesis 06/03: ph 7.26 - wbc 2431 - glu 115 - tp 4.7 - ldh 258 -- exudative
He is maintained on diuretics as outpatient, may indicate parapneumonic effusion, pseudo exudate
Culture and cyto are pending
Daughter states he was recently treated as an outpatient for pneumonia with an oral course of antibiotics
He is not currently on empiric antibiotics
Important to rule out aspiration as a cause, he does have poor dentition
Speech therapy evaluation
Aspiration precautions
proBNP greater than 3000, component of heart failure
ECHO results reviewed--preserved function
Would recommend trial of diuresis
Will likely need repeat imaging as an outpatient with repeat CT to evaluate following resolution of effusion
No prior known history of lung disease
Will need outpatient pulmonary evaluation in our office for PFTs and 6MWT
Reviewed plan of care with daughter at bedside
We will follow
Diagnostic Data
Chest X-Ray: 06/03/25- Status post left thoracentesis. No evidence for pneumothorax.
CT Scan: CHEST 06/02/25- Moderate left pleural effusion with accompanying left lower lobe and left middle lobe consolidations with air bronchograms extending to the left hilum, evaluation overall markedly limited without intravenous contrast. Cannot
exclude some endobronchial mucous plugging. Central mass/malignancy in the left hemithorax would be unlikely but cannot be entirely excluded.
Small right pleural effusion. Few scattered small mediastinal lymph nodes. Coronary artery calcifications. Likely gallstones seen in the gallbladder, evaluation limited
Echo: 06/02/25- 1. Ejection fraction is 60-65% by visual assessment.
2. Right ventricular size and systolic function are within normal limits.
3. Mild mitral valve regurgitation.
4. Tricuspid valve opens normally. mild tricuspid regurgitation. Estimated pulmonary artery pressure of 30 mmHg assuming a right atrial pressure of 3 mmHg.
5. There are no prior studies available for comparison.
PFT's:
Reports and relevant images were personally reviewed.
Total time spent on this consultation __75__ minutes which includes review of history, physical exam, medications, laboratory data, personal review of imaging, extensive review of outpatient records, discussion with care team and respiratory therapy.
[2025-06-03 09:31] LABS: Hematocrit 39.9 % (39.0-52.0); Hemoglobin 13.2 g/dL (13.0-18.0); Mean Corp Hgb Conc. 33.1 g/dL (33.0-37.0); Mean Corpuscular Volume 84.4 fL (80.0-94.0); Nucleated Red Blood Cells % 0 % (-); Platelet Count 424 10^3/uL (130-400); Red Cell Dist. Width 14.5 % (11.5-14.5)
[2025-06-03 09:53] LABS: Blood Urea Nitrogen 40 mg/dl (9-20); Calcium 8.0 mg/dl (8.4-10.2); Carbon Dioxide 16 mmol/L (22-30); Chloride 107 mmol/L (98-107); Estimated Creatinine Clearance 35 ml/min; Glucose 123 mg/dl (70-99); Potassium 4.9 mmol/L (3.5-5.1); Sodium 133 mmol/L (135-145); eGFR 52.84
[2025-06-03 10:04] LABS: LDH 197 U/L (120-246); Total Protein 5.8 g/dl (6.3-8.2)
--- NOTE | 2025-06-03 11:59 | PN.CDI ---
CDI
- -
CDI:
Physician Documentation Request
Admit Date: 06/02/25 13:03
Dear Doctor Viet,
Please review the following and provide your response in the progress notes.
Clinical Indicators:
- 06/02 PN 'Renal insufficiency, unknown baseline however suspect likely CKD
Laboratory Tests
06/01/25 06/02/25 06/03/25
11:24 07:17 07:59
Creatinine 1.3 1.4 H 1.3
eGFR 52.84 48.34 52.84
Please clarify the suspected stage of CKD that accurately represents the patient's renal status
Stages of Chronic Kidney Disease*
Level Description GFR
G1 Normal or High >90
G2 Mildly decreased 60-89
G3a Mildly to moderately decreased 45-59
G3b Moderately to severely decreased 30-44
G4 Severely decreased 15-29
G5 Kidney failure <15
Use of terms such as suspected, likely, concern for, or probable (associated with a specific diagnosis that is being evaluated, monitored, or treated as if it exists) are acceptable and can be coded in the inpatient setting, when documented at the
time of discharge.
Thank you,
Elise Maria RN
CDI Specialist
Please use your independent medical judgment in providing your response.
*Source: Kidney Disease: Improving Global Outcomes (KDIGO) 2012
--- NOTE | 2025-06-03 12:05 | W.PN.HOSP.TC ---
Today's Communication/Plan
-
Monitor vital signs
see plan
IR for Thora
Pulmonary evaluation
Discussed with spouse over the phone
Monitor renal function
Assessment / Plan
Assessment / Plan
General: Well Developed, Well Nourished and No Apparent Distress
HEENT: NormoCephalic, Moist mucous membranes and Atraumatic
Respiratory: Clear, Non Labored Respirations and Decreased Breath Sounds
Cardiac: S1/S2, Irregular Rhythm and Murmur
GI: Soft, Non Tender, Non Distended and Normal Bowel Sounds
Musculoskeletal: No Edema
Neuro: Awake, AO x 3 and Nonfocal/grossly intact
Psych: Calm
CHF with preserved EF, does not appear acute exacerbation
Na+ 134, K+5.4, BUN 138, pBNP 3790
CXR: Dense opacification of the mid to lower left hemithorax which at least in part could represent pleural effusion.
No pneumothorax.
Cardiology signed off, does not think patient has acute exacerbation. Per patient he did urinate a lot after IV Lasix yesterday in the ED. He has no lower extremity edema. Echo with preserved EF
- Obtain records, Dr. Camacho with [place]
- daily weights
- I & Os
- hold Jardiance
Cardiology signed off
CXR noted with opacity; CT noted with opacity. Pulmonary consulted. IR consulted for Thora.
Weakness, ambulatory dysfunction
PT rec outpatient therapy
Hyponatremia
Monitor
Permanent atrial fibrillation
Rate controlled
Unsure why she is on lower dose of Eliquis, defer to cardiology
- continue Eliquis
Renal insufficiency, unknown baseline however suspect likely CKD, unknown baseline so cannot specify stage
Continue to monitor renal function
UA not suggestive of UTI
Hyponatremia
Monitor
Metabolic acidosis
Sodium bicarb
Monitor
Hyperkalemia
Now improving
Hold Aldactone, losartan
Monitor
Status post Kayexalate
#hypertension
- hold Aldactone, losartan
Monitor
hyperlipidemia
- continue atorvastatin
CAD with history of stenting 2005
- continue aspirin
#depression
- continue sertraline
anemia, likely of chronic disease
celiac disease
Code status: DNR
DVT prophylaxis: Eliquis
I spent a total of 53 minutes with the patient or on the floor. More than 50% of this time involved counseling and coordination of care.
Anticipated Discharge: 24 - 48 hours
Subjective/Interval History
-
Date of Service: June 03, 2025
denies pain
Objective Data
-
Labs:
Laboratory Results
06/03/25
07:59
WBC 12.3 H
Hgb 13.2
Hct 39.9
Plt Count 424 H
Sodium 133 L
Potassium 4.9
Chloride 107
Carbon Dioxide 16 L
BUN 40 H
Creatinine 1.3
Glucose 123 H
Calcium 8.0 L
Vital Signs:
Vital Signs
Temp Pulse Resp BP Pulse Ox
97.4 F 63 16 96/57 95
06/03/25 10:40 06/03/25 11:26 06/03/25 11:26 06/03/25 11:26 06/03/25 10:40
I&O
06/02/25 06/03/25 06/04/25
06:59 06:59 06:59
Intake Total 1580 / 1580
Output Total 375 / 375 830 / 830
Balance -375 / -375 750 / 750
[2025-06-03 13:19] LABS: Body Fluid Second Tech CMB
[2025-06-03] MEDS: ZOLOFT 12.5 MG PO (17:09)
[2025-06-03] MEDS: ASPIR LOW (ENTERIC COATED) 81 MG PO (17:09)
[2025-06-03] MEDS: XALATAN OPHTHALMIC SOLUTION 1 DROP BOTH EYES (21:24)
[2025-06-04] MEDS: MELATONIN 3 MG PO ×2 (00:56→21:33)
[2025-06-04 03:55] VITALS: BP 97/54
[2025-06-04 06:00] VITALS: BMI 24.4
[2025-06-04] MEDS: TYLENOL 650 MG PO (06:18)
[2025-06-04 07:53] LABS: Hematocrit 38.9 % (39.0-52.0); Hemoglobin 12.9 g/dL (13.0-18.0); Mean Corp Hgb Conc. 33.2 g/dL (33.0-37.0); Mean Corpuscular Volume 83.8 fL (80.0-94.0); Nucleated Red Blood Cells % 0 % (-); Platelet Count 415 10^3/uL (130-400); Red Cell Dist. Width 14.3 % (11.5-14.5)
[2025-06-04 08:10] VITALS: BP 104/59
[2025-06-04] MEDS: FOLVITE 1 MG PO (08:49)
[2025-06-04] MEDS: TRUSOPT 2% OPHTHALMIC SOLUTION 1 DROP BOTH EYES ×2 (08:49→20:27)
[2025-06-04] MEDS: LIPITOR 40 MG PO (08:49)
[2025-06-04] MEDS: ELIQUIS 2.5 MG PO ×2 (08:49→20:26)
[2025-06-04] MEDS: TIMOPTIC 0.5% OPHTHALMIC SOLUTION 1 DROP OPHTH ×2 (08:49→20:26)
--- NOTE | 2025-06-04 10:11 | PTOTSP ---
Speech therapy
Presentation: Patient was oriented and participatory during the session. Patient followed commands WNL. Patient denied any communicative deficits; speech and language appeared to be WNL during conversation.
Swallowing Function: Patient was observed with several bites of yogurt, regular consistency solids, and sips of thin liquids (straw) in which patient appeared to tolerate as he did not exhibit any overt clinical s/sx of aspiration. Noted mild
prolonged mastication with regular consistency solids which cleared with additional time and thin liquid wash. Of note, dentition may be a contributor to prolonged mastication.
Dysphagia risks: Per family and patient, patient has been experiencing decreased appetite and oral intake. Denied any overt weight loss but patient has had a hx of pna (~5 months ago; treated at [facility]) and has had concerning CXR during
this admission.
Given the above information, recommend continuation of current diet (reg/ thin) with diet tolerance check to ensure tolerance of PO diet and r/o aspiration.
Recommendations:
1) Regular consistency solids and thin liquids
2) Aspiration precautions
3) Medications as tolerated
Plan: [employer] will continue to follow to ensure tolerance; pending hospitalization.
--- NOTE | 2025-06-04 11:22 | W.PN.HOSP.TC ---
Addendum entered and electronically signed by Saul Llanos MD 06/04/25 12:50:
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 Patient to follow with cardiology at [place] outpatient
Original Note:
Today's Communication/Plan
-
monitor vitals
see plan
follow thora studies
pending bmp; if renal function better then check procal
Discussed with family at bedside
Assessment / Plan
Assessment / Plan
General: Well Developed, Well Nourished and No Apparent Distress
HEENT: NormoCephalic, Moist mucous membranes and Atraumatic
Respiratory: Clear, Non Labored Respirations and Decreased Breath Sounds
Cardiac: S1/S2, Irregular Rhythm and Murmur
GI: Soft, Non Tender, Non Distended and Normal Bowel Sounds
Musculoskeletal: No Edema
Neuro: Awake, AO x 3 and Nonfocal/grossly intact
Psych: Calm
CHF with preserved EF, does not appear acute exacerbation
Na+ 134, K+5.4, BUN 138, pBNP 3790
CXR: Dense opacification of the mid to lower left hemithorax which at least in part could represent pleural effusion.
No pneumothorax.
Cardiology signed off, does not think patient has acute exacerbation. Per patient he did urinate a lot after IV Lasix in the ED. He has no lower extremity edema. Echo with preserved EF
- Obtain records, Dr. Camacho with [place]
- daily weights
- I & Os
- hold Jardiance
Cardiology signed off
CXR noted with opacity; CT noted with opacity. Pulmonary following. Status post Thora 06/03 removal of 1500 cc pleural fluid. Appears exudative. Per family, has history of pneumonia. Renal function is improving then will check procalcitonin and
if elevated then likely will start antibiotic. Monitor leukocytosis
Speech evaluated, okay for regular diet
Weakness, ambulatory dysfunction
PT rec outpatient therapy
Hyponatremia
Monitor
Permanent atrial fibrillation
Rate controlled
Unsure why she is on lower dose of Eliquis, defer to cardiology
- continue Eliquis
Renal insufficiency, unknown baseline however suspect likely CKD, unknown baseline so cannot specify stage
Continue to monitor renal function
UA not suggestive of UTI
Hyponatremia
Monitor
Metabolic acidosis
Sodium bicarb
Monitor
Hyperkalemia
Now improving
Hold Aldactone, losartan
Monitor
Status post Kayexalate
#hypertension
- hold Aldactone, losartan
Monitor
hyperlipidemia
- continue atorvastatin
CAD with history of stenting 2005
- continue aspirin
#depression
- continue sertraline
anemia, likely of chronic disease
celiac disease
Code status: DNR
DVT prophylaxis: Eliquis
Anticipated Discharge: 24 - 48 hours
Subjective/Interval History
-
Date of Service: June 04, 2025
denies pain
Objective Data
-
Labs:
Laboratory Results
06/04/25 06/04/25
06:28 10:02
WBC 14.6 H
Hgb 12.9 L
Hct 38.9 L
Plt Count 415 H
Sodium Cancelled Pending
Potassium Cancelled Pending
Chloride Cancelled Pending
Carbon Dioxide Cancelled Pending
BUN Cancelled Pending
Creatinine Cancelled Pending
Glucose Cancelled Pending
Calcium Cancelled Pending
Total Bilirubin Cancelled Pending
AST Cancelled Pending
ALT Cancelled Pending
Alkaline Phosphatase Cancelled Pending
Vital Signs:
Vital Signs
Temp Pulse Resp BP Pulse Ox
98.3 F 88 20 104/59 94
06/04/25 08:10 06/04/25 08:10 06/04/25 08:10 06/04/25 08:10 06/04/25 08:50
I&O
06/03/25 06/04/25 06/05/25
06:59 06:59 06:59
Intake Total 1580 / 1580 720 / 720
Output Total 830 / 830 430 / 430
Balance 750 / 750 290 / 290
[2025-06-04 11:30] VITALS: BP 84/53
[2025-06-04 11:34] LABS: ALT (SGPT) 23 U/L (0-50); AST (SGOT) 32 U/L (17-59); Albumin 2.5 g/dl (3.5-5.0); Alkaline Phosphatase 143 U/L (38-126); Blood Urea Nitrogen 49 mg/dl (9-20); Calcium 7.9 mg/dl (8.4-10.2); Carbon Dioxide 14 mmol/L (22-30); Chloride 104 mmol/L (98-107); Estimated Creatinine Clearance 29 ml/min; Glucose 225 mg/dl (70-99); Potassium 4.5 mmol/L (3.5-5.1); Sodium 128 mmol/L (135-145); Total Protein 5.5 g/dl (6.3-8.2); eGFR 41.19
[2025-06-04] MEDS: SODIUM BICARBONATE 1300 MG PO ×3 (13:34→20:26)
[2025-06-04 15:38] VITALS: BP 88/54
[2025-06-04] MEDS: ASPIR LOW (ENTERIC COATED) 81 MG PO (17:25)
[2025-06-04] MEDS: ZOLOFT 12.5 MG PO (17:26)
[2025-06-04 19:37] VITALS: BP 87/49
[2025-06-04] MEDS: XALATAN OPHTHALMIC SOLUTION 1 DROP BOTH EYES (20:26)
[2025-06-04 20:51] LABS: ALT (SGPT) 23 U/L (0-50); AST (SGOT) 35 U/L (17-59); Albumin 2.2 g/dl (3.5-5.0); Alkaline Phosphatase 118 U/L (38-126); Blood Urea Nitrogen 56 mg/dl (9-20); Calcium 7.4 mg/dl (8.4-10.2); Carbon Dioxide 17 mmol/L (22-30); Chloride 100 mmol/L (98-107); Estimated Creatinine Clearance 24 ml/min; Glucose 226 mg/dl (70-99); Potassium 4.2 mmol/L (3.5-5.1); Sodium 125 mmol/L (135-145); Total Protein 4.9 g/dl (6.3-8.2); eGFR 33.51
[2025-06-04 23:18] VITALS: BP 109/55
[2025-06-05] VITALS (8 sets, daily range): BP systolic 88–104; BP diastolic 51–62; BMI 24.9
[2025-06-05 07:57] LABS: Hematocrit 36.7 % (39.0-52.0); Hemoglobin 12.6 g/dL (13.0-18.0); Mean Corp Hgb Conc. 34.3 g/dL (33.0-37.0); Mean Corpuscular Volume 82.1 fL (80.0-94.0); Nucleated Red Blood Cells % 0 % (-); Platelet Count 403 10^3/uL (130-400); Red Cell Dist. Width 14.0 % (11.5-14.5)
[2025-06-05 08:13] LABS: ALT (SGPT) 24 U/L (0-50); AST (SGOT) 36 U/L (17-59); Albumin 2.3 g/dl (3.5-5.0); Alkaline Phosphatase 138 U/L (38-126); Blood Urea Nitrogen 58 mg/dl (9-20); Calcium 7.6 mg/dl (8.4-10.2); Carbon Dioxide 18 mmol/L (22-30); Chloride 101 mmol/L (98-107); Estimated Creatinine Clearance 27 ml/min; Glucose 147 mg/dl (70-99); Potassium 4.3 mmol/L (3.5-5.1); Sodium 127 mmol/L (135-145); Total Protein 5.1 g/dl (6.3-8.2); eGFR 38.30
[2025-06-05] MEDS: ELIQUIS 2.5 MG PO ×2 (09:06→21:10)
[2025-06-05] MEDS: SODIUM BICARBONATE 1300 MG PO ×3 (09:06→21:10)
[2025-06-05] MEDS: LIPITOR 40 MG PO (09:06)
[2025-06-05] MEDS: TRUSOPT 2% OPHTHALMIC SOLUTION 1 DROP BOTH EYES ×2 (09:06→21:10)
[2025-06-05] MEDS: FOLVITE 1 MG PO (09:06)
[2025-06-05] MEDS: TIMOPTIC 0.5% OPHTHALMIC SOLUTION 1 DROP OPHTH ×2 (09:06→21:11)
[2025-06-05] MEDS: NSS 500 IV (09:07)
--- NOTE | 2025-06-05 10:06 | W.PN.HOSP.TC ---
Today's Communication/Plan
-
Monitor vital signs and see plan
Monitor renal function
500 cc fluid today
Check osm, sodium
Awaiting cytology
Pulmonary following
Assessment / Plan
Assessment / Plan
General: Well Developed, Well Nourished and No Apparent Distress
HEENT: NormoCephalic, Moist mucous membranes and Atraumatic
Respiratory: Clear, Non Labored Respirations and Decreased Breath Sounds
Cardiac: S1/S2, Irregular Rhythm and Murmur
GI: Soft, Non Tender, Non Distended and Normal Bowel Sounds
Musculoskeletal: No Edema
Neuro: Awake, AO x 3 and Nonfocal/grossly intact
Psych: Calm
CHF with preserved EF, does not appear acute exacerbation
Na+ 134, K+5.4, BUN 138, pBNP 3790
CXR: Dense opacification of the mid to lower left hemithorax which at least in part could represent pleural effusion.
No pneumothorax.
Cardiology signed off, does not think patient has acute exacerbation. Per patient he did urinate a lot after IV Lasix in the ED. He has no lower extremity edema. Echo with preserved EF
- Obtain records, Dr. Camacho with [place]
- daily weights
- I & Os
- hold Jardiance
Cardiology signed off
CXR noted with opacity; CT noted with opacity. Pulmonary following. Status post Thora 06/03 removal of 1500 cc pleural fluid. Appears exudative. Per family, has history of pneumonia. Monitor leukocytosis. will have to wait for cytology. thora was
groissly bloody. denies any hx of malignancy. Pulmonary following
Speech evaluated, okay for regular diet
Weakness, ambulatory dysfunction
PT rec outpatient therapy
Hyponatremia
Monitor
Permanent atrial fibrillation
Rate controlled
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 Patient to follow with cardiology at [place] outpatient
- continue Eliquis
DAGOBERTO, unknown baseline however suspect likely CKD, unknown baseline so cannot specify stage
Continue to monitor renal function
UA not suggestive of UTI
Creatinine 1.9 overnight, now 1.7. 500 cc fluid today and monitor. If renal function do not improve then will need nephrology evaluation
Could be from hypotensive episodes post Thora
us was neg on admission
Hyponatremia
Monitor
Na 127 today; assymptomatic
check osm and Na
Metabolic acidosis
Sodium bicarb
Monitor
Hyperkalemia
Now improving
Hold Aldactone, losartan
Monitor
Status post Kayexalate
#hypertension
- hold Aldactone, losartan
Monitor
hyperlipidemia
- continue atorvastatin
CAD with history of stenting 2005
- continue aspirin
#depression
- continue sertraline
anemia, likely of chronic disease
celiac disease
Code status: DNR
DVT prophylaxis: Eliquis
I spent a total of 52 minutes with the patient or on the floor. More than 50% of this time involved counseling and coordination of care.
Anticipated Discharge: 24 - 48 hours
Subjective/Interval History
-
Date of Service: June 05, 2025
denies pain
Objective Data
-
Labs:
Laboratory Results
06/05/25
07:01
WBC 16.3 H
Hgb 12.6 L
Hct 36.7 L
Plt Count 403 H
Sodium 127 L
Potassium 4.3
Chloride 101
Carbon Dioxide 18 L
BUN 58 H
Creatinine 1.7 H
Glucose 147 H
Calcium 7.6 L
Total Bilirubin 1.3
AST 36
ALT 24
Alkaline Phosphatase 138 H
Vital Signs:
Vital Signs
Temp Pulse Resp BP Pulse Ox
97.4 F 69 20 96/54 92
06/05/25 07:55 06/05/25 07:55 06/05/25 07:55 06/05/25 07:55 06/05/25 07:55
I&O
06/04/25 06/05/25 06/06/25
06:59 06:59 06:59
Intake Total 720 / 720 1320 / 1320
Output Total 430 / 430 275 / 275
Balance 290 / 290 1045 / 1045
--- NOTE | 2025-06-05 12:27 | W.PN.PUL3 ---
Today's Communication / Plan
-
- Await pleural fluid cytology
- Ct Abd/pelvis for further evaluatin
Assessment
-
Patient is an 89-year-old male with previous history of A-fib on Eliquis, CAD, congestive heart failure, hypertension presenting with poor p.o. intake, generalized weakness, dizziness, shortness of breath over the past 3 to 4 days. Initial
demonstrating proBNP of 3700, chest x-ray demonstrating pleural effusion. Underwent thoracentesis today with improvement of complaints. Initial fluid chemistry suggesting exudative fluid but he is maintained on diuretics as an outpatient. We are
consulted for evaluation
Pleural effusion status post thoracentesis 06/03/2025 (Exudative/hemorrhagic)
HFpEF
Leukocytosis, mild
Hyponatremia, mild
Metabolic acidosis
Decreased p.o. intake
Shortness of breath with exertion
Generalized weakness
Conditions present prior to admission
atrial fibrillation
hypertension
hyperlipidemia
congestive heart failure
CAD
anemia
depression
celiac disease
Hx hemorrahgic CVA s/p kevin holes
appendectomy
cardiac stent
tonsillectomy
MOHS for BCC
Plan
No oxygen was needed on admission, currently saturating 92-93% on RA
Prior history of lung disease is NOT noted --nonsmoker, prior imaging not available for review
CXR/CT obtained indicating left sided pleural effusion with another collection in the fissure
Underwent thoracentesis 06/03: ph 7.26 - wbc 2431 - glu 115 - tp 4.7 - ldh 258 -- exudative/hemorrhagic
He is maintained on diuretics as outpatient, cultures negative so far
Malignancy in a concern, cytology pending. Pursue CT Abd/pelvis.
Reported recent treatment with oral antibiotics for pneumonia, residual parapneumonic effusion also in differential diagnosis.
He is not currently on empiric antibiotics
Important to rule out aspiration as a cause, he does have poor dentition
Speech therapy evaluation
Aspiration precautions
proBNP greater than 3000, h/o CHF
Currently appears euvolemic, developed mild DAGOBERTO with diuresis. Effusion not suggestive of cardiac etiology
ECHO results reviewed--preserved function
Will likely need repeat imaging as an outpatient with repeat CT to evaluate following resolution of effusion
No prior known history of lung disease
Will need outpatient pulmonary evaluation in our office for PFTs and 6MWT
Reviewed plan of care with and son at bedside
Diagnostic Data
Chest X-Ray: 06/03/25- Status post left thoracentesis. No evidence for pneumothorax.
CT Scan: CHEST 06/02/25- Moderate left pleural effusion with accompanying left lower lobe and left middle lobe consolidations with air bronchograms extending to the left hilum, evaluation overall markedly limited without intravenous contrast. Cannot
exclude some endobronchial mucous plugging. Central mass/malignancy in the left hemithorax would be unlikely but cannot be entirely excluded.
Small right pleural effusion. Few scattered small mediastinal lymph nodes. Coronary artery calcifications. Likely gallstones seen in the gallbladder, evaluation limited
Echo: 06/02/25- 1. Ejection fraction is 60-65% by visual assessment.
2. Right ventricular size and systolic function are within normal limits.
3. Mild mitral valve regurgitation.
4. Tricuspid valve opens normally. mild tricuspid regurgitation. Estimated pulmonary artery pressure of 30 mmHg assuming a right atrial pressure of 3 mmHg.
5. There are no prior studies available for comparison.
PFT's:
Reports and relevant images were personally reviewed.
Total time spent on this consultation __45__ minutes which includes review of history, physical exam, medications, laboratory data, personal review of imaging, extensive review of outpatient records, discussion with care team and respiratory therapy.
Subjective Data
-
Date of Service:
Date of Service: June 05, 2025
Subjective:
Comfortably lying in bed in no acute distress
Review of Systems
Genitourinary: Other (No new symptoms reported)
Objective Data
Data Reviewed
Vital Signs / I&O / Oxygen:
Vital Signs
Temp Pulse Resp BP Pulse Ox
97.9 F 83 18 99/54 91
06/05/25 11:35 06/05/25 11:35 06/05/25 11:35 06/05/25 11:35 06/05/25 11:35
Intake and Output
06/04/25 06/05/25 06/06/25
06:59 06:59 06:59
Intake Total 720 / 720 1320 / 1320
Output Total 430 / 430 275 / 275
Balance 290 / 290 1045 / 1045
SaO2 91
Physical Exam
General: Comfortable
HEENT: Normocephalic
Cardiovascular: S1-S2
Respiratory: Crackles (Left lower lobe posteriorly )
GI: Soft and Non Distended
Neurology: Awake and Alert
Skin: Warm
Labs/Micro/Reports
Lab Data
06/05/25 07:01
06/05/25 07:01
Microbiology
06/03/25 11:14 Pleural Fluid Body Fluid Culture - Preliminary
No Growth After 48 Hours
06/03/25 11:14 Pleural Fluid Gram Stain - Preliminary
[2025-06-05] MEDS: OMNIPAQUE 50 ML PO (13:15)
--- NOTE | 2025-06-05 14:21 | PTCARENOTE ---
Pt completed Prep for CT
[2025-06-05] MEDS: ZOLOFT 12.5 MG PO (17:09)
[2025-06-05] MEDS: ASPIR LOW (ENTERIC COATED) 81 MG PO (17:10)
[2025-06-05] MEDS: XALATAN OPHTHALMIC SOLUTION 1 DROP BOTH EYES (21:11)
[2025-06-05] MEDS: MELATONIN 3 MG PO (21:33)
[2025-06-06] VITALS (9 sets, daily range): BP systolic 88–117; BP diastolic 53–85; PULSE 82–87; O2SAT 94; BMI 25.1
[2025-06-06] MEDS: TYLENOL 650 MG PO (01:50)
--- NOTE | 2025-06-06 08:31 | W.PN.HOSP.TC ---
Today's Communication/Plan
-
albumin and samsca as per nephro
daily weight I/O
diet restriction liberalized
Assessment / Plan
Assessment / Plan
Physical Exam
General: Well Developed, Well Nourished and No Apparent Distress
HEENT: NormoCephalic, Moist mucous membranes and Atraumatic
Respiratory: Clear, Non Labored Respirations and Decreased Breath Sounds
Cardiac: S1/S2, Irregular Rhythm and Murmur
GI: Soft, Non Tender, Non Distended and Normal Bowel Sounds
Musculoskeletal: No Edema
Neuro: Awake, AO x 3 and Nonfocal/grossly intact
Psych: Calm
89M HFpEF afib HTN HLD CAD stents Depression presenting w/ weakness and pleural effusion
CHF with preserved EF, does not appear acute exacerbation
pBNP 3790
CXR: Dense opacification of the mid to lower left hemithorax which at least in part could represent pleural effusion.
No pneumothorax.
Cardiology signed off, no acute exacerbation CHF. Per patient he did urinate a lot after IV Lasix in the ED. He has no lower extremity edema. Echo with preserved EF
- Obtain records, Dr. Camacho with [place]
- daily weights
- I & Os
- hold Jardiance
CXR noted with opacity; CT noted with opacity. Pulmonary eval appreciated. Status post Thora 06/03 removal of 1500 cc pleural fluid. Appears exudative. Per family, has history of pneumonia. Monitor leukocytosis. will have to wait for cytology.
thora was grossly bloody. denies any hx of malignancy.
Speech eval appreciated okay for regular diet
Weakness, ambulatory dysfunction
PT rec outpatient therapy
Permanent atrial fibrillation
Rate controlled
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 Patient to follow with cardiology at [place] outpatient
- continue Eliquis
Hyponatremia progressively worsening
DAGOBERTO progressively worsening
SIADH
Hypoalbuminemia
Continue to monitor renal function
UA not suggestive of UTI
us neg on admission
Nephro eval appreciated albumin infusions and samsca prn
Metabolic acidosis
Sodium bicarb
Monitor
Hyperkalemia
Hold Aldactone, losartan
Monitor
Status post Kayexalate
hyperkalemia since resolved
Hx hypertension
BP consistently low normotensive/boderline hypotension
Hold home Aldactone, losartan
hyperlipidemia
- continue atorvastatin
CAD with history of stenting 2005
- continue aspirin
#depression
- continue sertraline
anemia, likely of chronic disease
celiac disease
Code status: DNR
DVT prophylaxis: Eliquis
Discussed with patient and patient's family (son-in-law Ferny, granddaughter Deysi, and Rose Mary)
I spent a total of 45 minutes with the patient or on the floor. More than 50% of this time involved counseling and coordination of care.
Anticipated Discharge: 24 - 48 hours
Subjective/Interval History
-
Date of Service: June 06, 2025
seen and examined at bedside in no acute distress, resting comfortably in bed. Poor oral intake. Reports general malaise. Family ( Rose Mary, granddaughter Deysi, and son-in-law Ferny) present during evaluation.
Objective Data
-
Labs:
Laboratory Results
06/06/25
06:00
WBC Pending
Hgb Pending
Hct Pending
Plt Count Pending
Sodium Pending
Potassium Pending
Chloride Pending
Carbon Dioxide Pending
BUN Pending
Creatinine Pending
Glucose Pending
Calcium Pending
Vital Signs:
Vital Signs
Temp Pulse Resp BP Pulse Ox
97.4 F 94 18 108/70 92
06/06/25 07:50 06/06/25 07:50 06/06/25 07:50 06/06/25 07:50 06/06/25 07:50
I&O
06/05/25 06/06/25 06/07/25
06:59 06:59 06:59
Intake Total 1320 / 1320 780 / 780
Output Total 275 / 275 75 / 75
Balance 1045 / 1045 705 / 705
[2025-06-06 09:20] LABS: Hematocrit 33.6 % (39.0-52.0); Hemoglobin 11.4 g/dL (13.0-18.0); Mean Corp Hgb Conc. 33.9 g/dL (33.0-37.0); Mean Corpuscular Volume 82.2 fL (80.0-94.0); Nucleated Red Blood Cells % 0 % (-); Platelet Count 415 10^3/uL (130-400); Red Cell Dist. Width 14.1 % (11.5-14.5)
[2025-06-06 10:01] LABS: Blood Urea Nitrogen 69 mg/dl (9-20); Calcium 7.8 mg/dl (8.4-10.2); Carbon Dioxide 17 mmol/L (22-30); Chloride 97 mmol/L (98-107); Estimated Creatinine Clearance 24 ml/min; Glucose 147 mg/dl (70-99); Potassium 4.7 mmol/L (3.5-5.1); Sodium 123 mmol/L (135-145); eGFR 33.51
[2025-06-06] MEDS: LIPITOR 40 MG PO (10:17)
[2025-06-06] MEDS: ELIQUIS 2.5 MG PO ×2 (10:17→20:16)
[2025-06-06] MEDS: TIMOPTIC 0.5% OPHTHALMIC SOLUTION 1 DROP OPHTH ×2 (10:18→20:17)
[2025-06-06] MEDS: TRUSOPT 2% OPHTHALMIC SOLUTION 1 DROP BOTH EYES ×2 (10:18→20:17)
[2025-06-06] MEDS: FOLVITE 1 MG PO (10:18)
--- NOTE | 2025-06-06 10:24 | W.PN.PUL.V3 ---
Today's Communication / Plan
-
Wean oxygen
Increase activity.
Monitor pleural fluid reaccumulation.
Pleural fluid cytology pending.
Observe off antibiotics
Assessment
-
Patient is an 89-year-old male with previous history of A-fib on Eliquis, CAD, congestive heart failure, hypertension presenting with poor p.o. intake, generalized weakness, dizziness, shortness of breath over the past 3 to 4 days. Initial
demonstrating proBNP of 3700, chest x-ray demonstrating pleural effusion. Underwent thoracentesis today with improvement of complaints. Initial fluid chemistry suggesting exudative fluid but he is maintained on diuretics as an outpatient. We are
consulted for evaluation
Pleural effusion status post thoracentesis 06/03/2025 (Exudative/hemorrhagic)
HFpEF
Leukocytosis, mild
Hyponatremia, mild
Metabolic acidosis
Decreased p.o. intake
Shortness of breath with exertion
Generalized weakness
Conditions present prior to admission:
atrial fibrillation
hypertension
hyperlipidemia
congestive heart failure
CAD
anemia
depression
celiac disease
Hx hemorrahgic CVA s/p kevin holes
appendectomy
cardiac stent
tonsillectomy
MOHS for BCC
Plan
Respiratory status improved after thoracentesis.
Continue supplemental oxygen as needed-attempt to wean to room air.
Incentive spirometry.
Aspiration precautions.
Speech therapy following-correspondence reviewed.-Regular solids with thin liquids
Nebulizers if needed-currently not bronchospastic.
Thoracentesis 06/03/25 noted-exudate/hemorrhagic, cultures negative, cytology pending
ph 7.26 - wbc 2431 - glu 115 - tp 4.7 - ldh 258 -- exudative/hemorrhagic
He is maintained on diuretics as outpatient, cultures negative so far
Malignancy in a concern, cytology pending
Monitor for pleural fluid reaccumulation
Gentle diuresis
Will need outpatient pulmonary evaluation in our office for PFTs and 6MWT
Reviewed plan of care with and daughter at bedside
Diagnostic Data
Chest X-Ray: 06/03/25- Status post left thoracentesis. No evidence for pneumothorax.
CT Scan: CHEST 06/02/25- Moderate left pleural effusion with accompanying left lower lobe and left middle lobe consolidations with air bronchograms extending to the left hilum, evaluation overall markedly limited without intravenous contrast. Cannot
exclude some endobronchial mucous plugging. Central mass/malignancy in the left hemithorax would be unlikely but cannot be entirely excluded.
Small right pleural effusion. Few scattered small mediastinal lymph nodes. Coronary artery calcifications. Likely gallstones seen in the gallbladder, evaluation limited
Echo: 06/02/25- 1. Ejection fraction is 60-65% by visual assessment.
2. Right ventricular size and systolic function are within normal limits.
3. Mild mitral valve regurgitation.
4. Tricuspid valve opens normally. mild tricuspid regurgitation. Estimated pulmonary artery pressure of 30 mmHg assuming a right atrial pressure of 3 mmHg.
5. There are no prior studies available for comparison.
PFT's:
Reports and relevant images were personally reviewed.
Subjective Data
-
Date of Service:
Date of Service: June 06, 2025
Chief Complaint: Pulmonary Follow Up and Dyspnea Follow Up
Subjective:
Feels better after thoracentesis, no complaints of shortness of breath, chest pain, productive cough, or abdominal pain
Review of Systems
General: Other ( per HPI)
Objective Data
Data Reviewed
Vital Signs / I&O:
Vital Signs
Temp Pulse Resp BP Pulse Ox
97.4 F 94 18 108/70 92
06/06/25 07:50 06/06/25 07:50 06/06/25 07:50 06/06/25 07:50 06/06/25 07:50
Intake and Output
06/05/25 06/06/25 06/07/25
06:59 06:59 06:59
Intake Total 1320 / 1320 780 / 780
Output Total 275 / 275 75 / 75
Balance 1045 / 1045 705 / 705
SaO2: 92
Nasal Cannula flow liters per minute: 2
Physical Exam
General: Respiratory Distress (n) and Comfortable
HEENT: Normocephalic and Anicteric
Cardiovascular: Regular Rhythm and Murmur
Respiratory: Crackles (Left lower lobe posteriorly ), Rhonchi, Non-Labored Respirations, Accessory Resp Muscle Use (n) and Stridor
GI: Soft, Non Distended and Non Tender
Neurology: Awake, Alert and No Motor Deficits
Skin: Warm, Good Color, Cyanosis (n) and Jaundice (n)
Labs/Micro/Reports
Lab Data
06/06/25 08:54
06/06/25 08:54
Microbiology
06/03/25 11:14 Pleural Fluid Body Fluid Culture - Final
No Growth After 72 Hours
06/03/25 11:14 Pleural Fluid Gram Stain - Final
--- NOTE | 2025-06-06 16:24 | W.CON.NEPH ---
Consultation
-
Date/Time Consultation Requested: June 06, 2025 at 4
Date/Time Consultation Performed: June 06, 2025 at 4:30 PM
Requesting Provider: Dr. Brown
Performing Provider: Dr. Wade
Reason for Consultation: Acute kidney injury and
Medical History
-
Chief Complaint: Acute kidney injury and hyponatremia
History of Present Illness:
89-year-old male past medical history of atrial fibrillation on Eliquis, CAD, CHF, hypertension, hyperlipidemia, depression, celiac disease, presenting with generalized weakness, poor p.o. intake 3 to 4 days. �Patient had mild dizziness almost
passed a few days ago. �Complain of shortness of breath. He is status postthoracentesis. He has preserved ejection fraction.
Renal consult for acute kidney injury creatinine 1.9 from 1.3-1.4 on admission as well as worsening sodium admitted at 134 down to 123
Serum albumin 2.3 with 1+ albumin on urine analysis
His home weights have been about 155 pounds as he lives with his and they weigh him daily
He is not on any oxygen currently status post thoracentesis 1.5 L
Past Medical History
Atrial fibrillation on Eliquis, CAD, CHF, hypertension, hyperlipidemia, depression, celiac disease,
Social History
Tobacco: Non-Smoker
Alcohol: None
Family History
Family History: Not Pertinent
Allergies / Home Medications
Allergy/AdvReac Type Severity Reaction Status Date / Time
gluten Allergy Unknown Verified 06/02/25 02:43
�Medication �Instructions �Recorded �Confirmed �Type
apixaban 2.5 mg tablet (Eliquis) 2.5 mg PO BID 06/01/25 06/01/25 History
aspirin 81 mg tablet,delayed 81 mg PO QPM 06/01/25 06/01/25 History
release
atorvastatin 40 mg tablet (Lipitor) 40 mg PO DAILY 06/01/25 06/01/25 History
dorzolamide-timolol (PF) 2 %-0.5 % 1 drp BOTH EYES BID 06/01/25 06/01/25 History
eye drops in a dropperette
empagliflozin 10 mg tablet 10 mg PO DAILY 06/01/25 06/01/25 History
(Jardiance)
folic acid 1 mg tablet 1 mg PO DAILY 06/01/25 06/01/25 History
latanoprost 0.005 % eye drops 1 drp BOTH EYES HS 06/01/25 06/01/25 History
netarsudil 0.02 % eye drops 1 drp BOTH EYES QPM 06/01/25 06/01/25 History
(Rhopressa)
sertraline 25 mg tablet 12.5 mg PO QPM 06/01/25 06/01/25 History
spironolactone 25 mg tablet 25 mg PO DAILY 06/01/25 06/01/25 History
valsartan 40 mg tablet 20 mg PO QPM 06/01/25 06/01/25 History
Review of Systems
-
Mild shortness of breath denies chest pain and nausea
All other systems: Negative unless noted
Physical Exam
Vital Signs
Vital Signs
Temp Pulse Resp BP Pulse Ox
97.6 F 87 18 100/56 91
06/06/25 15:35 06/06/25 15:35 06/06/25 15:35 06/06/25 15:35 06/06/25 15:35
Lab Results
WBC 17.9 10^3/uL (4.8-10.8) H 06/06/25 08:54
RBC 4.09 10^6/uL (4.70-6.10) L 06/06/25 08:54
Hgb 11.4 g/dL (13.0-18.0) L 06/06/25 08:54
Hct 33.6 % (39.0-52.0) L 06/06/25 08:54
Plt Count 415 10^3/uL (130-400) H 06/06/25 08:54
Sodium 123 mmol/L (135-145) L 06/06/25 08:54
Potassium 4.7 mmol/L (3.5-5.1) 06/06/25 08:54
Chloride 97 mmol/L (98-107) L 06/06/25 08:54
Carbon Dioxide 17 mmol/L (22-30) L 06/06/25 08:54
BUN 69 mg/dl (9-20) H 06/06/25 08:54
Creatinine 1.9 mg/dL (0.7-1.3) H 06/06/25 08:54
eGFR 33.51 06/06/25 08:54
Glucose 147 mg/dl (70-99) H 06/06/25 08:54
Calcium 7.8 mg/dl (8.4-10.2) L 06/06/25 08:54
Zqr-L-Imxkdekkbcr Pept 3790 pg/ml 06/01/25 12:40
Albumin 2.3 g/dl (3.5-5.0) L 06/05/25 07:01
Physical Exam
General no acute distress
HEENT no cephalic atraumatic extraocular muscle intact no scleral icterus no JVD neck supple
lungs clear to auscultation bilateral
heart regular S1-S2 positive
abdomen soft nontender positive bowel sounds
extremities no edema pulses present bilateral
Neurologically nonfocal alert and oriented x 3
Skin no lesions no abrasions no petechiae
Psych normal affect no bizarre behavior
Data Reviewed
-
Radiology: Image Personally Visualized and interpreted
CT Scan: Image Personally Visualized and interpreted
Labs: Labs Reviewed by me, Discussed with Physician and Discussed with Patient
Assessment/Plan
-
89-year-old male past medical history of atrial fibrillation on Eliquis, CAD, CHF, hypertension, hyperlipidemia, depression, celiac disease, presenting with generalized weakness, poor p.o. intake 3 to 4 days and shortness of breath. he is status
postthoracentesis. He has preserved ejection fraction.
Renal consult for acute kidney injury creatinine 1.9 from 1.3-1.4 on admission as well as worsening sodium admitted at 134 down to 123
Serum albumin 2.3 with 1+ albumin on urine analysis
Chronically hypotensive since he is in the hospital
Impression
Acute on chronic kidney disease stage IIIa
Hyponatremia secondary to ADH effect and hypotension compromised by decreased p.o.
Hypoalbuminemia
Atrial fibrillation stable
CHF preserved EF
History of CAD
Plan.
Albumin every 8 to help with increased effective arterial blood volume
Samsca 15 mg x 1
Hold diuretics but will likely need to give the next 24-hour
Echocardiogram reviewed preserved EF with estimated pulmonary artery pressures 30 mmHg
Strict urine output monitor
Daily weights
Discussed with the family at length
Discussed with Dr. Brown
Prognosis guarded

33 minutes of high complexity critical care
--- NOTE | 2025-06-06 16:31 | CM ---
Met with patient to obtain information for assessment (late entry from 06/03). Patient lives with his in a one story home with no steps at an [place] community. He described himself as independent with all ADLs, personal care, dressing and
bathing. 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 Patient has no DME. He has not had VN. He has not been to a SNF.
Patient has a prescription plan and uses, [facility] in [place] for all of her medications.
Patient's PCP is, Francis Lama.
Plan: Case management will continue to follow and assist with discharge planning. Home when stable.
[2025-06-06] MEDS: SAMSCA 15 MG PO (17:59)
[2025-06-06] MEDS: ASPIR LOW (ENTERIC COATED) 81 MG PO (18:00)
[2025-06-06] MEDS: FLEXBUMIN 50 IV (18:00)
[2025-06-06] MEDS: ZOLOFT 12.5 MG PO (18:01)
[2025-06-06] MEDS: XALATAN OPHTHALMIC SOLUTION 1 DROP BOTH EYES (21:10)
[2025-06-06] MEDS: MELATONIN 3 MG PO (21:17)
[2025-06-07] VITALS (10 sets, daily range): BP systolic 87–148; BP diastolic 49–66; PULSE 95; O2SAT 93; BMI 25.2
[2025-06-07] MEDS: TYLENOL 650 MG PO (00:05)
[2025-06-07] MEDS: FLEXBUMIN 50 IV ×2 (00:06→08:42)
[2025-06-07 07:51] LABS: Hematocrit 31.8 % (39.0-52.0); Hemoglobin 10.5 g/dL (13.0-18.0); Mean Corp Hgb Conc. 33.0 g/dL (33.0-37.0); Mean Corpuscular Volume 83.5 fL (80.0-94.0); Platelet Count 425 10^3/uL (130-400); Red Cell Dist. Width 14.3 % (11.5-14.5)
[2025-06-07 08:20] LABS: Blood Urea Nitrogen 80 mg/dl (9-20); Calcium 7.9 mg/dl (8.4-10.2); Carbon Dioxide 19 mmol/L (22-30); Chloride 94 mmol/L (98-107); Estimated Creatinine Clearance 21 ml/min; Glucose 140 mg/dl (70-99); Magnesium 2.4 mg/dl (1.6-2.3); Potassium 5.3 mmol/L (3.5-5.1); Sodium 124 mmol/L (135-145); eGFR 28.10
[2025-06-07] MEDS: ELIQUIS 2.5 MG PO ×2 (08:50→20:40)
[2025-06-07] MEDS: FOLVITE 1 MG PO (08:50)
[2025-06-07] MEDS: TRUSOPT 2% OPHTHALMIC SOLUTION 1 DROP BOTH EYES ×2 (08:50→20:42)
[2025-06-07] MEDS: LIPITOR 40 MG PO (08:50)
[2025-06-07] MEDS: TIMOPTIC 0.5% OPHTHALMIC SOLUTION 1 DROP OPHTH ×2 (08:50→20:42)
--- NOTE | 2025-06-07 08:58 | W.PN.HOSP.TC ---
Today's Communication/Plan
-
IR eval for chest placement Left moderate pleural effusion loculated
transfer to IMU for closer monitoring
Hypertonic Saline as per Nephro
ID eval
Assessment / Plan
Assessment / Plan
Physical Exam
General: No acute distress, appears comfortable at this time
HEENT: NormoCephalic, Moist mucous membranes and Atraumatic
Respiratory: Clear, Non Labored Respirations and Decreased Breath Sounds. conversational dyspnea
Cardiac: S1/S2, Irregular Rhythm and Murmur
GI: Soft, Non Tender, Non Distended and Normal Bowel Sounds
Musculoskeletal: No Edema
Neuro: AOx3 conversant coherent though mentation seems slow
Psych: Calm
89M HFpEF afib HTN HLD CAD stents Depression presenting w/ weakness and pleural effusion
CHF with preserved EF, does not appear acute exacerbation
pBNP 3790
CXR: Dense opacification of the mid to lower left hemithorax which at least in part could represent pleural effusion.
No pneumothorax.
Cardiology signed off, no acute exacerbation CHF. Per patient he did urinate a lot after IV Lasix in the ED. He has no lower extremity edema. Echo with preserved EF
- Obtain records, Dr. Camacho with [facility]
- daily weights
- I & Os
- hold Jardiance
CXR noted with opacity; CT noted with opacity. Pulmonary eval appreciated. Status post Thora 06/03 removal of 1500 cc pleural fluid. Appears exudative. Per family, has history of pneumonia. Monitor leukocytosis. will have to wait for cytology.
thora was grossly bloody. denies any hx of malignancy.
Speech eval appreciated okay for regular diet
repeat Chest US appreciated Left moderate pleural effusion loculated, discussed with pulm patient recommended for chest tube placement, IR consulted, transfer request placed for IMU closer monitoring
Progressive Leukocytosis, though consistently afebrile, ID eval requested
Weakness, ambulatory dysfunction
PT rec outpatient therapy
Permanent atrial fibrillation
Rate controlled
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 Patient to follow with cardiology at [facility] outpatient
- continue Eliquis
Hyponatremia progressively worsening
DAGOBERTO progressively worsening
SIADH
Hypoalbuminemia
Continue to monitor renal function
UA not suggestive of UTI
us neg on admission
Nephro eval appreciated albumin infusions, samsca, hypertonic saline prn
Metabolic acidosis
Sodium bicarb
Monitor
Hyperkalemia
Hold Aldactone, losartan
Monitor
Status post Kayexalate
hyperkalemia since resolved
Hx hypertension
BP consistently low normotensive/boderline hypotension
Hold home Aldactone, losartan
hyperlipidemia
- continue atorvastatin
CAD with history of stenting 2005
- continue aspirin
#depression
- continue sertraline
anemia, likely of chronic disease
celiac disease
Code status: DNR
DVT prophylaxis: Eliquis
Discussed with patient and patient's family ( Rose Mary and daughter Luisa retired claims adjuster)
I spent a total of 50 minutes with the patient or on the floor. More than 50% of this time involved counseling and coordination of care.
Anticipated Discharge: > 48 hours
Subjective/Interval History
-
Date of Service: June 07, 2025
no acute distress, sitting up comfortably in chair, daughter Rose Mary present during evaluation.
Objective Data
-
Labs:
Laboratory Results
06/07/25
06:32
WBC 19.4 H
Hgb 10.5 L
Hct 31.8 L
Plt Count 425 H
Sodium 124 L
Potassium 5.3 H
Chloride 94 L
Carbon Dioxide 19 L
BUN 80 H
Creatinine 2.2 H
Glucose 140 H
Calcium 7.9 L
Vital Signs:
Vital Signs
Temp Pulse Resp BP Pulse Ox
97.3 F 80 18 137/63 95
06/07/25 07:30 06/07/25 07:30 06/07/25 07:30 06/07/25 07:30 06/07/25 07:30
I&O
06/06/25 06/07/25 06/08/25
06:59 06:59 06:59
Intake Total 780 / 780 1320 / 1320
Output Total 75 / 75 275 / 275
Balance 705 / 705 1045 / 1045
[2025-06-07] MEDS: SODIUM CHLORIDE 3% 250 IV (10:26)
--- NOTE | 2025-06-07 10:39 | W.PN.PUL.V3 ---
Today's Communication / Plan
-
Aspiration precautions.
Nutrition
Wean oxygen.
Ultrasound noted-place chest tube if possible for complete drainage.
Assessment
-
Patient is an 89-year-old male with previous history of A-fib on Eliquis, CAD, congestive heart failure, hypertension presenting with poor p.o. intake, generalized weakness, dizziness, shortness of breath over the past 3 to 4 days. Initial
demonstrating proBNP of 3700, chest x-ray demonstrating pleural effusion. Underwent thoracentesis today with improvement of complaints. Initial fluid chemistry suggesting exudative fluid but he is maintained on diuretics as an outpatient. We are
consulted for evaluation
Pleural effusion status post thoracentesis 06/03/2025 (Exudative/hemorrhagic)
HFpEF
Leukocytosis, mild
Hyponatremia, mild
Metabolic acidosis
Decreased p.o. intake
Shortness of breath with exertion
Generalized weakness
Conditions present prior to admission:
atrial fibrillation
hypertension
hyperlipidemia
congestive heart failure
CAD
anemia
depression
celiac disease
Hx hemorrahgic CVA s/p kevin holes
appendectomy
cardiac stent
tonsillectomy
MOHS for BCC
Plan
Respiratory status improved after Initial thoracentesis.
Continue supplemental oxygen as needed-attempt to wean to room air.
Incentive spirometry encouraged
Aspiration precautions.
Speech therapy following-correspondence reviewed.-Regular solids with thin liquids
Nebulizers if needed-currently not bronchospastic.
Thoracentesis 06/03/25 noted-exudate/hemorrhagic, cultures negative, cytology pending
ph 7.26 - wbc 2431 - glu 115 - tp 4.7 - ldh 258 -- exudative/hemorrhagic
He is maintained on diuretics as outpatient, cultures negative so far
Malignancy in a concern, cytology pending
Monitor for pleural fluid reaccumulation.
Chest ultrasound 06/07/2562-[id number] loculated left pleural effusion containing thick internal septations.
Place chest tube for adequate and complete drainage 06/07/25
Gentle diuresis ongoing.
DVT prophylaxis-on Eliquis
Will need outpatient pulmonary evaluation in our office for PFTs and 6MWT
Reviewed plan of care with and daughter at bedside on 06/06/25 and with on 06/07/25
Diagnostic Data
Chest X-Ray: 06/03/25- Status post left thoracentesis. No evidence for pneumothorax.
CT Scan: CHEST 06/02/25- Moderate left pleural effusion with accompanying left lower lobe and left middle lobe consolidations with air bronchograms extending to the left hilum, evaluation overall markedly limited without intravenous contrast. Cannot
exclude some endobronchial mucous plugging. Central mass/malignancy in the left hemithorax would be unlikely but cannot be entirely excluded.
Small right pleural effusion. Few scattered small mediastinal lymph nodes. Coronary artery calcifications. Likely gallstones seen in the gallbladder, evaluation limited
Echo: 06/02/25- 1. Ejection fraction is 60-65% by visual assessment.
2. Right ventricular size and systolic function are within normal limits.
3. Mild mitral valve regurgitation.
4. Tricuspid valve opens normally. mild tricuspid regurgitation. Estimated pulmonary artery pressure of 30 mmHg assuming a right atrial pressure of 3 mmHg.
5. There are no prior studies available for comparison.
Subjective Data
-
Date of Service:
Date of Service: June 07, 2025
Chief Complaint: Pulmonary Follow Up and Dyspnea Follow Up
Subjective:
No increased shortness of breath, no respiratory distress
Review of Systems
General: Other ( per HPI)
Objective Data
Data Reviewed
Vital Signs / I&O:
Vital Signs
Temp Pulse Resp BP Pulse Ox
97.3 F 80 18 137/63 95
06/07/25 07:30 06/07/25 07:30 06/07/25 07:30 06/07/25 07:30 06/07/25 07:30
Intake and Output
08/06/07/25 06/08/25
06:59 06:59 06:59
Intake Total 780 / 780 1320 / 1320
Output Total 75 / 75 275 / 275
Balance 705 / 705 1045 / 1045
SaO2: 95
Nasal Cannula flow liters per minute: 4
Physical Exam
General: Respiratory Distress (n) and Comfortable
HEENT: Normocephalic and Anicteric
Cardiovascular: Regular Rhythm and Murmur
Respiratory: Crackles (Left lower lobe posteriorly ), Rhonchi, Non-Labored Respirations, Accessory Resp Muscle Use (n) and Stridor
GI: Soft, Non Distended and Non Tender
Neurology: Awake, Alert and No Motor Deficits
Skin: Warm, Good Color, Cyanosis (n) and Jaundice (n)
Labs/Micro/Reports
Lab Data
06/07/25 06:32
06/07/25 06:32
Microbiology
06/03/25 11:14 Pleural Fluid Body Fluid Culture - Final
No Growth After 72 Hours
06/03/25 11:14 Pleural Fluid Gram Stain - Final
[2025-06-07 11:51] LABS: COVID-19 Antigen Negative (Negative)
--- NOTE | 2025-06-07 12:08 | W.PN.UPDATE ---
Update Note
Progress Note Update
Minimal improvement hyponatremia samsca. DAGOBERTO also continues to worsen started on hypertonic saline with albumin infusions as per nephro
Chest US notes moderate loculated Left pleural effusion. Discussed with Pulm, recommended for chest tube placement. JASON wahl requested
Patient on renally dosed Eliquis for afib and asa for CAD hx PCI
Though patient seems relatively stable comfortable at this time, recommending transfer to IMU for closer monitoring overall frailty worsening condition increasing oxygen requirement (4L overnight) high risk situation.
Discussed with patient, patient's Rose Mary, and daughter Luisa (retired endless bed drum sander)
--- NOTE | 2025-06-07 13:03 | CHAP ---
The patient's chief juvenile probation officer from his home parish, [place], came to visit him and gave him the Sacrament of the Sick. Exact time uncertain.
--- NOTE | 2025-06-07 13:44 | W.PN.NEPH.PH ---
Today's Communication / Plan
-
Hypertonic saline
Assessment/Plan
-
89-year-old male past medical history of atrial fibrillation on Eliquis, CAD, CHF, hypertension, hyperlipidemia, depression, celiac disease, presenting with generalized weakness, poor p.o. intake 3 to 4 days and shortness of breath. he is status
postthoracentesis. He has preserved ejection fraction.
Renal consult for acute kidney injury creatinine 1.9 from 1.3-1.4 on admission as well as worsening sodium admitted at 134 down to 123
Serum albumin 2.3 with 1+ albumin on urine analysis
Chronically hypotensive since he is in the hospital
Impression
Acute on chronic kidney disease stage IIIa
Hyponatremia secondary to ADH effect and hypotension compromised by decreased p.o.
Hypoalbuminemia
Atrial fibrillation stable
CHF preserved EF
History of CAD
Plan.
Echocardiogram reviewed preserved EF with estimated pulmonary artery pressures 30 mmHg
Strict urine output monitor
Daily weights
Discussed with the family at length
Discussed with Dr. Brown
No response to Samsca sodium remains at 124
Will start 3% saline
Patient does not appear to be in heart failure.
Continue albumin another 24 hours
Remains on 4 L/loculated effusion on ultrasound chest/pulmonary following
Stable weight

-
-
Date of Service: June 07, 2025
CC / HPI / ROS
-
Chief Complaint:
DAGOBERTO
History of Present Illness:
Acute on chronic kidney injury with CHF pleural effusions status post thoracentesis significantly malnourished and hypoalbuminemia 2.3 hypotensive
Review of Systems:
Sitting in chair comfortable on 4 L
oliguric
Weight stable
Labs
-
Labs:
WBC 19.4 10^3/uL (4.8-10.8) H 06/07/25 06:32
RBC 3.81 10^6/uL (4.70-6.10) L 06/07/25 06:32
Hgb 10.5 g/dL (13.0-18.0) L 06/07/25 06:32
Hct 31.8 % (39.0-52.0) L 06/07/25 06:32
Plt Count 425 10^3/uL (130-400) H 06/07/25 06:32
Sodium 124 mmol/L (135-145) L 06/07/25 06:32
Potassium 5.3 mmol/L (3.5-5.1) H 06/07/25 06:32
Chloride 94 mmol/L (98-107) L 06/07/25 06:32
Carbon Dioxide 19 mmol/L (22-30) L 06/07/25 06:32
BUN 80 mg/dl (9-20) H 06/07/25 06:32
Creatinine 2.2 mg/dL (0.7-1.3) H 06/07/25 06:32
eGFR 28.10 06/07/25 06:32
Glucose 140 mg/dl (70-99) H 06/07/25 06:32
Calcium 7.9 mg/dl (8.4-10.2) L 06/07/25 06:32
Phosphorus 6.5 mg/dl (2.5-4.5) H 06/07/25 06:32
Dhr-C-Oxptdwpewic Pept 3790 pg/ml 06/01/25 12:40
Albumin 2.3 g/dl (3.5-5.0) L 06/05/25 07:01
Physical Exam
-
Vital Signs:
Vital Signs
Temp Pulse Resp BP Pulse Ox
97.8 F 88 12 110/61 94
06/07/25 11:00 06/07/25 11:00 06/07/25 11:00 06/07/25 11:00 06/07/25 11:00
Respiratory:: Bilateral: Coarse
Lung Excursion:: Normal
Abdomen:: Soft
Bowel Sounds:: Normal
Extremity Edema:: None: Bilateral:
Klein Catheter: No
--- NOTE | 2025-06-07 14:02 | CON.ID ---
Consultation
-
Date/Time Consultation Requested: June 07, 2025 0945
Date/Time Consultation Performed: June 07, 2025 1400
Requesting Provider: Dr. Paula Brown
Performing Provider: Dr. Dolores Fofana
Reason for Consultation: Rising leukocytosis, pleural effusion
Chief Complaint / Past History
Chief Complaint
Weakness
History of Present Illness
History obtained from the patient, from his and daughter at bedside. 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
weakness for about 1. His appetite has been poor. Positive shortness of breath especially with activity. No cough. No fevers chills or sweats at home. No headache or sore throat. No nausea vomiting or diarrhea. No abdominal pain. No urine
symptoms. No flank pain. He denies swallowing difficulties/aspiration. No travel history. No rash. Per daughter who is a retired nurse, patient has had history of positive PPD , untreated. He had annual chest x-ray screening when he worked in
the [employer] [facility].
In ED, afebrile, hyponatremic, hyperkalemic, and DAGOBERTO. Chest CT showed moderate left pleural effusion with left lower and middle lobe consolidation/air bronchograms. June 03 he underwent thoracentesis of 1.5 L of bloody fluid. Fluid exudative
but patient was getting Lasix. Fluid culture negative to date of antibiotic. No empiric antibiotic started. In the meantime his white count has been trending up to 19.4. Chest ultrasound shows left loculated pleural effusion, small right pleural
effusion. Patient is planned for chest tube placement today.
Past History
Additional Past Medical History:
Afib on Eliquis
CAD s/p stent
HFpF
Hemorrhagic CVA
CKD3
Dyslipidemia
Celiac disease
Depression
Appendectomy
BCC s/p MOHs
Allergy History:
gluten Allergy (Verified 06/02/25 02:43)
Unknown
Medications Reviewed: Yes
Current Antibiotics:
none
Social History
Tobacco: Non-Smoker
Alcohol: None
Drug: None
Personal:
Employment: Retired (Respiratory therapist)
Family History
Family History: Not Pertinent
Review of Systems
Review of Systems
General: Change in Appetite; Negative Fever or Chills
HEENT: Negative Sinus Problems, Headache or Pharyngitis
Cardiovascular: Negative Chest Pain or Edema
Respiratory: Dyspnea; Negative Cough or Sputum Production
Gasteroenterology: Negative Nausea, Vomiting or Diarrhea
Genital / Urological: Negative Dysuria or Flank Pain
Endocrine: Weakness
Musculoskeletal: Negative Arthralgias
All systems: All other systems were reviewed and were negative
Vital Signs
Temp Pulse Resp BP Pulse Ox
97.8 F 88 12 110/61 94
06/07/25 11:00 06/07/25 11:00 06/07/25 11:00 06/07/25 11:00 06/07/25 11:00
Physical Exam
Physical Exam
Constitutional: Acutely Ill
Head: Other (No frontal or major sinus tenderness)
Eyes: No Conjunctival Hemorrhage and Sclera Anicteric
Cardiovascular: Regular Rate and S1/S2
Pulmonary: Other (Decreased breath sounds left base >R)
Gastrointestinal: Soft, Non Tender, Non Distended and Normal Bowel Sounds
Genito-Urinary: Negative CVA Tenderness
Extremities: Negative Edema
Neurological: AO x 3
Lab / Diagnostic Study Results
06/07/25 06:32
06/07/25 06:32
Abs Immat Gran (auto) 0.3 10^3/uL (0-0.05) H 06/06/25 08:54
Absolute Neuts (auto) 15.2 10^3/uL (1.4-6.5) H 06/06/25 08:54
Absolute Lymphs (auto) 0.6 10^3/uL (1.2-3.4) L 06/06/25 08:54
Absolute Monos (auto) 1.7 10^3/uL (0.1-0.6) H 06/06/25 08:54
Absolute Basos (auto) 0.0 10^3/uL (0-0.2) 06/06/25 08:54
Immature Gran % 1.7 % (0-0.5) H 06/06/25 08:54
Neutrophils % 85.0 % (42.2-75.2) H 06/06/25 08:54
Lymphocytes % 3.5 % (20.5-51.1) L 06/06/25 08:54
Monocytes % 9.6 % (1.7-9.3) H 06/06/25 08:54
Eosinophils % 0.1 % (0-6) 06/06/25 08:54
Basophils % 0.1 % (0-2) 06/06/25 08:54
Ur Squamous Epith Cells >30 /LPF (Few) 06/01/25 14:34
Microbiology Results
Micro:
06/07/25 11:25 Influenza Types A & B (PHAM) - Final
Nasal Swab Negative for Influenza A & B, NAAT
Negative results must be combined with clinical observations
and patient history.
Nucleic Acid Amplification test (NAAT)performed on the
[employer] platform.
06/03/25 11:14 Body Fluid Culture - Final
Pleural Fluid No Growth After 72 Hours
Gram Stain - Final
06/07/25 Chest US: Moderate-sized loculated left pleural effusion containing thick internal septations. Small to moderate-sized right pleural effusion.
06/05/25 CT a/p: Moderate bilateral pleural effusions. Adjacent compressive atelectasis. Incidental mild to moderate symmetric gynecomastia. Contracted gallbladder. Cholelithiasis. No apparent bile duct dilatation. Pancreatic parenchymal atrophy
most pronounced in the distal body and tail region. Suggestion of small subtle low-attenuation pancreatic lesions. However, the examination is limited. Follow-up examination may be considered with intravenous contrast. No renal or ureteral calculus.
No obstructive uropathy. Renal cysts.
06/02/[address]: Moderate left pleural effusion with accompanying left lower lobe and left middle lobe consolidations with air bronchograms extending to the left hilum, evaluation overall markedly limited without intravenous contrast. Cannot
exclude some endobronchial mucous plugging. Central mass/malignancy in the left hemithorax would be unlikely but cannot be entirely excluded.
Assessment / Plan
# Leukocytosis trending up
# Moderate loculated pleural effusion
# DAGOBERTO
# Hyponatremia
# hx +PPD/latent TB, untreated. Check IGRA in am to confirm.
- 06/03 Thora 1.5L bloody fluid. >2000 WBC, 50% PMN, 50% mono, exudative, cx negative (off abx)
- Check urine legionella and strep pneumo antigen
- For chest tube placement - repeat cell count, prot, LDH, cx, added legionella cx, AFB smear/cx
- After chest tube placement, start empiric Unasyn and Azithromycin.
- Trend wbc.
--- NOTE | 2025-06-07 15:55 | PTCARENOTE ---
Pt left floor to have chest tube placed in IR. Then this pt will go to IMU [id number]. Gave report to Mei TRAYLOR. Transport took pt without incident
--- NOTE | 2025-06-07 18:37 | PTCARENOTE ---
Patient transferred to IMU s/p chest tube placement on left side. Dressing clean, dry and intact. Patient awake with slurred speech after anesthesia. He is oriented to person, place, time and procedure. Denying pain when asked.
[2025-06-07 19:33] LABS: Body Fluid Second Tech EYM
[2025-06-07] MEDS: ASPIR LOW (ENTERIC COATED) 81 MG PO (20:40)
[2025-06-07] MEDS: ZOLOFT 12.5 MG PO (20:41)
[2025-06-07] MEDS: XALATAN OPHTHALMIC SOLUTION 1 DROP BOTH EYES (20:42)
--- NOTE | 2025-06-07 21:34 | PTCARENOTE ---
Received patient at change of shift. Patient aao x3, speech slurred and slow. Patient denies pain at this time. Rose Mary at bedside along with grandson. Patient in afib, controlled. Lung sounds noted with crackles 1/2 way up b/l, and expiratory
wheeze. Patient on 2L n/c, pox 98%. Hygiene provided, patient required brief increase to 4L n/c during care to maintain pox in the 90's, then returned to 2L n/c post care. Left chest tube dressing c/d/i, chest tube to wall suction at -20, draining
350ml of bloody drainage since arrival to IMU. RN contacted FLOOR WORKER [employer] and [employer] building construction foreman Dr. Rosa to review continuing anticoagulants and 350ml bloody drainage. Dr. Rosa instructed ok to continue with anticoagulants as blood in tube is old blood.
No crepitus noted. Skin otherwise intact throughout.
Silicone foam applied to patients sacrum for prevention, heels elevated with pillow and patient repositioned for comfort and pressure relief. Patient attempted to use urinal, unsuccessful. Condom cath #21 applied.
Patient with IV's to right hand and right a/c, both intact and capped.
Patient able to take pills crushed with applesauce and sips of water. Small cough noted post intake, patient states cough occurs sometimes after eating/drinking. HOB elevated 90 degrees.
Bed alarm on, call moss within reach, will continue to monitor patient closely.
[2025-06-07] MEDS: UNASYN IV (22:05)
[2025-06-07] MEDS: ZITHROMAX INFUSION 250 IV (22:56)
[2025-06-08] VITALS (74 sets, daily range): BP systolic 71–123; BP diastolic 39–68; BMI 25.2
[2025-06-08] MEDS: DUONEB 3 ML INH (00:20)
[2025-06-08] MEDS: MELATONIN 3 MG PO (00:33)
[2025-06-08] MEDS: LEVOPHED 250 IV ×2 (01:15→10:19)
--- NOTE | 2025-06-08 02:45 | PTCARENOTE ---
3342: Patient hypotensive around 0100, confirmed with manual BP 64/40. Patient responsive, lethargic. Contacted PAROLE OFFICER, verbal order received to draw stat H/H, am labs, and start Levo at 2mcg/min for MAP >65. Levo started at that time. Patient
titrated up to 8mcg at this time. at bedside and updated with patient status and plan of care. Understanding verbalized.
--- NOTE | 2025-06-08 02:46 | DOWNTIME ---
There was a HOTEL Top-Level Domain Client Preschool Associate Teacher Downtime on 06/08/2025 from 0100 to 06/08/2025 at 0235. Downtime documentation of patient's care, including medication administrations, has been reconciled in the electronic record per guidelines. Refer to the
patient's paper chart under the miscellaneous tab to see printed paper medication records and downtime forms.
[2025-06-08 02:53] LABS: Blood Urea Nitrogen 91 mg/dl (9-20); Calcium 8.1 mg/dl (8.4-10.2); Carbon Dioxide 21 mmol/L (22-30); Chloride 98 mmol/L (98-107); Estimated Creatinine Clearance 19 ml/min; Glucose 165 mg/dl (70-99); Magnesium 2.6 mg/dl (1.6-2.3); Potassium 5.2 mmol/L (3.5-5.1); Sodium 129 mmol/L (135-145); eGFR 25.32
[2025-06-08 03:11] LABS: Hematocrit 26.8 % (39.0-52.0); Hemoglobin 9.0 g/dL (13.0-18.0)
[2025-06-08 03:12] LABS: Mean Corp Hgb Conc. 33.6 g/dL (33.0-37.0); Mean Corpuscular Volume 82.5 fL (80.0-94.0); Red Cell Dist. Width 14.2 % (11.5-14.5)
[2025-06-08 03:14] LABS: Platelet Count 395 10^3/uL (130-400)
--- NOTE | 2025-06-08 04:02 | W.PN.UPDATE ---
Addendum entered and electronically signed by STELLA Khoury 06/08/25 06:22:
Hypotensive likely due to dehydration, Hypovolemic.
albumin 2.[address] Moran
will order Albumin infusion.
remains on Levophed
Original Note:
Update Note
Progress Note Update
0100 RN reported patient with low BP. confirmed with manual 64/40 75, Patient responsive, lethargic. stat H&H done results noted, also started Levophed drip to maintain MAP >65.
[2025-06-08] MEDS: ALBUMIN 5% 250 IV (05:31)
[2025-06-08] MEDS: ELIQUIS 2.5 MG PO (07:52)
[2025-06-08] MEDS: LIPITOR 40 MG PO (07:53)
[2025-06-08] MEDS: TIMOPTIC 0.5% OPHTHALMIC SOLUTION 1 DROP OPHTH (07:53)
[2025-06-08] MEDS: FOLVITE 1 MG PO (07:53)
[2025-06-08] MEDS: TRUSOPT 2% OPHTHALMIC SOLUTION 1 DROP BOTH EYES (07:54)
--- NOTE | 2025-06-08 07:57 | W.PN.HOSP.TC ---
Today's Communication/Plan
-
comfort care
Assessment / Plan
Assessment / Plan
Physical Exam
General: No acute distress, appears relatively comfortable at this time
HEENT: NormoCephalic, Moist mucous membranes and Atraumatic
Respiratory: Clear, Non Labored Respirations and Decreased Breath Sounds. conversational dyspnea
Cardiac: S1/S2, Irregular Rhythm and Murmur
GI: Soft, Non Tender, Non Distended and Normal Bowel Sounds
Musculoskeletal: No Edema
Neuro: AOx3 conversant coherent though mentation seems slow
Psych: Calm
89M HFpEF afib HTN HLD CAD stents Depression presenting w/ weakness and pleural effusion
CHF with preserved EF, does not appear acute exacerbation
pBNP 3790
CXR: Dense opacification of the mid to lower left hemithorax which at least in part could represent pleural effusion.
No pneumothorax.
Cardiology signed off, no acute exacerbation CHF. Per patient he did urinate a lot after IV Lasix in the ED. He has no lower extremity edema. Echo with preserved EF
- Obtain records, Dr. Camacho with [facility]
- daily weights
- I & Os
- hold Jardiance
CXR noted with opacity; CT noted with opacity. Pulmonary eval appreciated. Status post Thora 06/03 removal of 1500 cc pleural fluid. Appears exudative. Per family, has history of pneumonia. Monitor leukocytosis. will have to wait for cytology.
thora was grossly bloody. denies any hx of malignancy.
Speech eval appreciated okay for regular diet
repeat Chest US appreciated Left moderate pleural effusion loculated, discussed with pulm patient recommended for chest tube placement, IR consulted, transfer request placed for IMU closer monitoring
Progressive Leukocytosis, though consistently afebrile, ID eval appreciated started unasyn and azithromycin post chest tube placement.
06/08 Shock unclear etiology requiring pressor support Infectious vs hypovolemic/hypoalbuminemia
prn Albumin infusions
wean pressor support as tolerated
started on midodrine 2.5 mg TID w/ holding parameters
Permanent atrial fibrillation
Rate controlled
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 Patient to follow with cardiology at [facility] outpatient
- continue Eliquis
Hyponatremia progressively worsening
DAGOBERTO progressively worsening
SIADH
Hypoalbuminemia
Continue to monitor renal function
UA not suggestive of UTI
us neg on admission
Nephro eval appreciated albumin infusions, samsca, hypertonic saline prn
Na improved but DAGOBERTO cont to worsen
Metabolic acidosis
Sodium bicarb
Monitor
Hyperkalemia
Hold Aldactone, losartan
Monitor
Status post Kayexalate
hyperkalemia since resolved
Hx hypertension
BP consistently low normotensive/boderline hypotension
Hold home Aldactone, losartan
hyperlipidemia
- continue atorvastatin
CAD with history of stenting 2005
- continue aspirin
#depression
- continue sertraline
anemia, likely of chronic disease
celiac disease
Code status: DNR
DVT prophylaxis: Eliquis
06/08/25 Goals of Care discussion: Discussed with women's activities adviser, patient's Rose Mary, patient's daughter Luisa, and patient's son Feng- patient/family in agreement with pursuing hospice/comfort care. Patient progressively declining, poor oral
intake, failure to thrive, worsening DAGOBERTO, requiring pressor support, multiple comorbidities including Heart Failure Afib CAD Anemia of Chronic Disease, advance age, no requiring pressor support. Passing likely to be imminent following switch to
comfort care (patient/family aware) but if patient still with us and stable tomorrow, likely candidate for inpt hospice then. Patient's care updated in accordance to patient/family wishes.
I spent a total of 50 minutes with the patient or on the floor. More than 50% of this time involved counseling and coordination of care.
Anticipated Discharge: Within 24 hours
Subjective/Interval History
-
Date of Service: June 08, 2025
No acute distress sitting up comfortably in bed. AOx3 conversant coherent though hard of hearing and conversational dyspnea noted. Started on pressor support overnight following chest tube placement. Rose Mary present during evaluation.
Objective Data
-
Labs:
Laboratory Results
06/07/25 06/08/25
21:25 01:20
WBC 18.8 H
Hgb Cancelled 9.0 L
Hct Cancelled 26.8 L
Plt Count 395
Sodium 129 L
Potassium 5.2 H
Chloride 98
Carbon Dioxide 21 L
BUN 91 H
Creatinine 2.4 H
Glucose 165 H
Calcium 8.1 L
Total Bilirubin Pending
AST Pending
ALT Pending
Alkaline Phosphatase Pending
Vital Signs:
Vital Signs
Temp Pulse Resp BP Pulse Ox
97.8 F 83 19 92/68 95
06/08/25 07:17 06/08/25 06:00 06/08/25 06:00 06/08/25 06:00 06/08/25 06:00
I&O
06/07/25 06/08/25 06/09/25
06:59 06:59 06:59
Intake Total 1320 / 1320
Output Total 275 / 275 725 / 725
Balance 1045 / 1045 -725 / -725
--- NOTE | 2025-06-08 09:07 | W.PN.NEPH.PH ---
Today's Communication / Plan
-
Maintain pressor support and albumin as needed for hypotension, keep MAP at 65 or greater
Jardiance held
Renal failure worsening, postvoid bladder scans have not shown significant residuals
Serum sodium improved after hypertonic saline infusion
Fluid restriction placed for hyponatremia 1500 cc
Assessment/Plan
-
89-year-old male past medical history of atrial fibrillation on Eliquis, CAD, CHF, hypertension, hyperlipidemia, depression, celiac disease, presenting with generalized weakness, poor p.o. intake 3 to 4 days and shortness of breath. he is status
postthoracentesis. He has preserved ejection fraction.
Renal consult for acute kidney injury creatinine 1.9 from 1.3-1.4 on admission as well as worsening sodium admitted at 134 down to 123
Serum albumin 2.3 with 1+ albumin on urine analysis
Chronically hypotensive since he is in the hospital
Impression
Acute on chronic kidney disease stage IIIa
Hyponatremia secondary to ADH effect and hypotension compromised by decreased p.o.
Hypoalbuminemia
Atrial fibrillation stable
CHF preserved EF
History of CAD
Plan.
Echocardiogram reviewed preserved EF with estimated pulmonary artery pressures 30 mmHg
DAGOBERTO worsening with creatinine up to 2.4 with only 150 cc of urine output: Etiology likely due to compromised effective circulating volume in setting of hypoalbuminemia
Strict urine output monitor, check postvoid bladder scan
Serum sodium increased from 125 to 129 following hypertonic saline infusion
Hemodynamically labile on , midodrine,pressor support and following IV albumin infusion
Daily weights
Previously discussed with the family at length
Jardiance held
No response from Samsca sodium remains at 124 on 06/07/2025
Patient does not appear to be in heart failure.
Continue albumin another 24 hours
Remains on 4 L/loculated effusion on ultrasound chest/pulmonary following, now with chest tube
Stable weight
Quantitate underlying proteinuria with urine protein to creatinine ratio
Patient at high clinical risk with ongoing hyponatremia and worsening oliguric renal failure

-
-
Date of Service: June 08, 2025
CC / HPI / ROS
-
Chief Complaint:
DAGOBERTO
History of Present Illness:
Acute on chronic kidney injury with CHF pleural effusions status post thoracentesis significantly malnourished and hypoalbuminemia 2.3 hypotensive
Creatinine up to 2.4
Remains hemodynamically labile on midodrine and Levophed support
Serum sodium up from 125-129 following hypertonic saline infusion
Review of Systems:
Sitting in chair comfortable on 4 L
Nonoliguric
Weight stable
Labs
-
Labs:
WBC 18.8 10^3/uL (4.8-10.8) H 06/08/25 01:20
RBC 3.25 10^6/uL (4.70-6.10) L 06/08/25 01:20
Hgb 9.0 g/dL (13.0-18.0) L 06/08/25 01:20
Hct 26.8 % (39.0-52.0) L 06/08/25 01:20
Plt Count 395 10^3/uL (130-400) 06/08/25 01:20
Sodium 129 mmol/L (135-145) L 06/08/25 01:20
Potassium 5.2 mmol/L (3.5-5.1) H 06/08/25 01:20
Chloride 98 mmol/L (98-107) 06/08/25 01:20
Carbon Dioxide 21 mmol/L (22-30) L 06/08/25 01:20
BUN 91 mg/dl (9-20) H 06/08/25 01:20
Creatinine 2.4 mg/dL (0.7-1.3) H 06/08/25 01:20
eGFR 25.32 06/08/25 01:20
Glucose 165 mg/dl (70-99) H 06/08/25 01:20
Calcium 8.1 mg/dl (8.4-10.2) L 06/08/25 01:20
Phosphorus 6.1 mg/dl (2.5-4.5) H 06/08/25 01:20
Shn-W-Vrebmxoqvua Pept 3790 pg/ml 06/01/25 12:40
Physical Exam
-
Vital Signs:
Vital Signs
Temp Pulse Resp BP Pulse Ox
97.8 F 86 19 121/51 95
06/08/25 07:17 06/08/25 07:52 06/08/25 06:00 06/08/25 07:52 06/08/25 06:00
Cardiovascular:: Regular rate and rhythm
Respiratory:: Bilateral: Coarse
Lung Excursion:: Normal
Abdomen:: Nontender and Soft
Bowel Sounds:: Normal
Extremity Edema:: +1: Bilateral:
Klein Catheter: No
Other Findings::
Gen: Left-sided chest tube
--- NOTE | 2025-06-08 09:08 | W.PN.ID1 ---
Date of Service
Date of Service: June 08, 2025
Today's Communication
Continue unasyn/azithro.
Assessment / Plan
# Leukocytosis slightly improved
# Moderate loculated pleural effusion
# DAGOBERTO
# Hyponatremia
# hx +PPD/latent TB, untreated. IGRA pending.
- 06/03 Thora 1.5L bloody fluid. >2000 WBC, 50% PMN, 50% mono, exudative, cx negative (off abx)
- 06/07 Chest tube placed.
Pl fluid: 4872 WBC, 81% PMN, 4.4 protein, 342 LDH.
Cx pending.
Legionella cx pending.
ADA pending
AFB pending
- urine legionella and strep pneumo antigen
- Continue Unasyn and Azithromycin (d1)
- Trend wbc.
# Conditions MARKETING COMMUNICATION MANAGER:
Afib on Eliquis
CAD s/p stent
HFpF
Hemorrhagic CVA
CKD3
Dyslipidemia
Celiac disease
Depression
Appendectomy
BCC s/p MOHs
Chief Complaint
-: Leukocytosis and Other (pleural effusion)
Subjective / Review of Systems
Feels better after chest tube placement.
Vital Signs / Physical Exam
Vital Signs
Vital Signs
Temp Pulse Resp BP Pulse Ox
97.8 F 86 19 121/51 95
06/08/25 07:17 06/08/25 07:52 06/08/25 06:00 06/08/25 07:52 06/08/25 06:00
Physical Exam
Constitutional: Comfortable
Eyes: Sclera Anicteric
Cardiovascular: Regular Rate and S1/S2
Pulmonary: Non Labored and Other (left chest tube in place)
Gastrointestinal: Soft, Non Tender, Non Distended and Normal Bowel Sounds
Genito-Urinary: Negative CVA Tenderness
Extremities: Negative Edema
Neurological: AO x 3
Objective Data
Lab Data
Lab Results
06/08/25 01:20
06/08/25 01:20
Estimated Creat Clear 19 ml/min 06/08/25 01:20
Total Bilirubin 1.3 mg/dl (0.2-1.3) 06/05/25 07:01
AST 36 U/L (17-59) 06/05/25 07:01
ALT 24 U/L (0-50) 06/05/25 07:01
Alkaline Phosphatase 138 U/L (38-126) H 06/05/25 07:01
Most recent labs reviewed.
Micro Results:
06/07/25 17:45 Body Fluid Culture - Pending
Pleural Fluid Gram Stain - Preliminary
06/07/25 17:47 Legionella Culture - Pending
Pleural Fluid
06/07/25 17:47 Acid Fast Bacilli Smear - Pending
Pleural Fluid Acid Fast Bacilli Culture - Pending
06/07/25 11:25 Influenza Types A & B (PHAM) - Final
Nasal Swab Negative for Influenza A & B, NAAT
Negative results must be combined with clinical observations
and patient history.
Nucleic Acid Amplification test (NAAT)performed on the
[employer] platform.
06/03/25 11:14 Body Fluid Culture - Final
Pleural Fluid No Growth After 72 Hours
Gram Stain - Final
06/07/25 Chest US: Moderate-sized loculated left pleural effusion containing thick internal septations. Small to moderate-sized right pleural effusion.
06/05/25 CT a/p: Moderate bilateral pleural effusions. Adjacent compressive atelectasis. Incidental mild to moderate symmetric gynecomastia. Contracted gallbladder. Cholelithiasis. No apparent bile duct dilatation. Pancreatic parenchymal atrophy
most pronounced in the distal body and tail region. Suggestion of small subtle low-attenuation pancreatic lesions. However, the examination is limited. Follow-up examination may be considered with intravenous contrast. No renal or ureteral calculus.
No obstructive uropathy. Renal cysts.
06/02/[address]: Moderate left pleural effusion with accompanying left lower lobe and left middle lobe consolidations with air bronchograms extending to the left hilum, evaluation overall markedly limited without intravenous contrast. Cannot
exclude some endobronchial mucous plugging. Central mass/malignancy in the left hemithorax would be unlikely but cannot be entirely excluded.
Care Review
Plan reviewed with: Physician (Dr. Brown)
[2025-06-08] MEDS: UNASYN IV (09:43)
--- NOTE | 2025-06-08 10:22 | W.PN.PUL.V3 ---
Today's Communication / Plan
-
.
We not she
Monitor chest tube output.
Norepinephrine weaned
Assessment
-
Patient is an 89-year-old male with previous history of A-fib on Eliquis, CAD, congestive heart failure, hypertension presenting with poor p.o. intake, generalized weakness, dizziness, shortness of breath over the past 3 to 4 days. Initial
demonstrating proBNP of 3700, chest x-ray demonstrating pleural effusion. Underwent thoracentesis today with improvement of complaints. Initial fluid chemistry suggesting exudative fluid but he is maintained on diuretics as an outpatient. We are
consulted for evaluation
Pleural effusion status post thoracentesis 06/03/2025 (Exudative/hemorrhagic)
Chest tube insertion 06/07/25-highly loculated effusion
HFpEF
Leukocytosis, mild
Hyponatremia, mild
Metabolic acidosis
Decreased p.o. intake
Shortness of breath with exertion
Generalized weakness
Conditions present prior to admission:
atrial fibrillation
hypertension
hyperlipidemia
congestive heart failure
CAD
anemia
depression
celiac disease
Hx hemorrahgic CVA s/p kevin holes
appendectomy
cardiac stent
tonsillectomy
MOHS for BCC
Plan
Respiratory status improved after initial thoracentesis.
Continue supplemental oxygen as needed-attempt to wean to room air.
Incentive spirometry encouraged
Aspiration precautions.
Speech therapy following-correspondence reviewed.-Regular solids with thin liquids
Nebulizers if needed-currently not bronchospastic.
Thoracentesis 06/03/25 noted-exudate/hemorrhagic, cultures negative, cytology pending
ph 7.26 - wbc 2431 - glu 115 - tp 4.7 - ldh 258 -- exudative/hemorrhagic
He is maintained on diuretics as outpatient, cultures negative so far
Malignancy in a concern, cytology pending
Monitor for pleural fluid reaccumulation.
Chest ultrasound 06/07/2550-[id number] loculated left pleural effusion containing thick internal septations.
Placed chest tube by interventional radiology for adequate and complete drainage 06/07/25-highly loculated-cultures negative thus far,cytology pending
Gentle diuresis stopped with significant hypotension.
Norepinephrine-attempt to wean off
DVT prophylaxis-on Eliquis
Comfort a priority.
Family considering hospice
Will need outpatient pulmonary evaluation in our office for PFTs and 6MWT
Reviewed plan of care with and daughter at bedside on 06/06/25 and with on 06/07/25 , as well as 06/08/25
Diagnostic Data
Chest X-Ray: 06/03/25- Status post left thoracentesis. No evidence for pneumothorax.
CT Scan: CHEST 06/02/25- Moderate left pleural effusion with accompanying left lower lobe and left middle lobe consolidations with air bronchograms extending to the left hilum, evaluation overall markedly limited without intravenous contrast. Cannot
exclude some endobronchial mucous plugging. Central mass/malignancy in the left hemithorax would be unlikely but cannot be entirely excluded.
Small right pleural effusion. Few scattered small mediastinal lymph nodes. Coronary artery calcifications. Likely gallstones seen in the gallbladder, evaluation limited
Echo: 06/02/25- 1. Ejection fraction is 60-65% by visual assessment.
2. Right ventricular size and systolic function are within normal limits.
3. Mild mitral valve regurgitation.
4. Tricuspid valve opens normally. mild tricuspid regurgitation. Estimated pulmonary artery pressure of 30 mmHg assuming a right atrial pressure of 3 mmHg.
5. There are no prior studies available for comparison.
Subjective Data
-
Date of Service:
Date of Service: June 08, 2025
Chief Complaint: Pulmonary Follow Up and Dyspnea Follow Up
Subjective:
Events noted, now feels better, still on pressors, complaints of shortness of breath, chest pain or abdominal pain, chest tube draining
Review of Systems
General: Other ( per HPI)
Objective Data
Data Reviewed
Vital Signs / I&O:
Vital Signs
Temp Pulse Resp BP Pulse Ox
97.8 F 86 19 121/51 95
06/08/25 07:17 06/08/25 07:52 06/08/25 06:00 06/08/25 07:52 06/08/25 06:00
Intake and Output
06/07/25 06/08/25 06/09/25
06:59 06:59 06:59
Intake Total 1320 / 1320
Output Total 275 / 275 725 / 725
Balance 1045 / 1045 -725 / -725
SaO2: 95
Nasal Cannula flow liters per minute: 2
Physical Exam
General: Respiratory Distress (n) and Comfortable
HEENT: Normocephalic and Anicteric
Cardiovascular: Regular Rhythm and Murmur
Respiratory: Crackles (Left lower lobe posteriorly ), Rhonchi, Non-Labored Respirations, Accessory Resp Muscle Use (n), Stridor and Chest Tube
GI: Soft, Non Distended and Non Tender
Neurology: Awake, Alert and No Motor Deficits
Skin: Warm, Good Color, Cyanosis (n) and Jaundice (n)
Labs/Micro/Reports
Lab Data
06/08/25 01:20
06/08/25 01:20
Microbiology
06/07/25 17:45 Pleural Fluid Gram Stain - Preliminary
06/07/25 11:25 Nasal Swab Influenza Types A & B (PHAM) - Final
Negative for Influenza A & B, NAAT
Negative results must be combined with clinical observations
and patient history.
Nucleic Acid Amplification test (NAAT)performed on the
[employer] platform.
06/03/25 11:14 Pleural Fluid Body Fluid Culture - Final
No Growth After 72 Hours
06/03/25 11:14 Pleural Fluid Gram Stain - Final
--- NOTE | 2025-06-08 10:34 | CM ---
Addendum entered by Liv De La Torre 06/08/25 12:53:
Patient now changed to Comfort care, [facility] home care liaison following for supports. CM will continue to follow for discharge planning needs.
Addendum entered by Liv De La Torre 06/08/25 10:36:
CM updated [facility] liaison verbally with request for coverage.
Original Note:
Patient seen at bedside in IMU and patient also present. Patient now interested in [facility]. Patient has no home O2 at this time. Patient plan is for home with [facility] per patient . CM will continue to follow for discharge planning needs.
Plan; home with [facility]; watch for home O2 needs; watch for pt/ot recommendations
--- NOTE | 2025-06-08 11:52 | PTCARENOTE ---
Levophed drip continues. unable to wean at this time. Dose is at 7mcg, MAP 65. Patient is for PICC line placement today. Discussed plan of care and medications with daughter and son. Family had questions, notified Dr. Brown. Hospice discussed.
--- NOTE | 2025-06-08 13:08 | W.PN.UPDATE ---
Update Note
Progress Note Update
Discussed assistant professor sculpture, patient's Rose Mary, and patient's daughter Luisa- patient/family in agreement with pursuing hospice/comfort care. Passing likely to be imminent following switch to comfort care but if patient still with us and stable
tomorrow, likely candidate for inpt hospice then. Patient's care updated in accordance to patient/family wishes.
--- NOTE | 2025-06-08 13:26 | PTCARENOTE ---
MAP decreased to 57, Levophed titrated to [address] Brown of Levophed requirements and family spoke to truck hopper and Dr. Meyer regarding plan of care options. Cutting Table Operator came to room for support. New orders pending for comfort.
[2025-06-08] MEDS: DILAUDID 0.25 MG IV ×3 (13:36→21:09)
[2025-06-08] MEDS: ATIVAN 0.5 MG PO ×3 (13:43→21:09)
--- NOTE | 2025-06-08 14:20 | PTCARENOTE ---
Patient is now comfort care. Generalized moderate pain and Anxiety relieved with current regimen. Family at bedside. End of life assessments completed.
[2025-06-08 16:01] LABS: ALT (SGPT) 23 U/L (0-50); AST (SGOT) 37 U/L (17-59); Albumin 2.3 g/dl (3.5-5.0); Alkaline Phosphatase 113 U/L (38-126); Total Protein 4.8 g/dl (6.3-8.2)
[2025-06-08 16:11] LABS: LDH 148 U/L (120-246)
--- NOTE | 2025-06-08 21:24 | PTCARENOTE ---
Received patient at change of shift from dayshift RN. Patient nonresponsive at start of shift. Family at bedside. Patient breathing shallow, rr 16-18 non labored. No observable signs of pain at start of shift. Slight mottling noted to b/l eleanor'alondra.
Bowel sounds hypoactive throughout. RN discussed patient status with spouse and family at bedside, reviewed stages of dying and patients current status. Discussed observable s/s of pain and continued monitoring. Family verbalizes appreciation.
At this time patient with increased restlessness, RR increased with some labored breathing intermittently. PRN Ativan and PRN Dilaudid administered per md orders.
Patient to transfer to , report called to 2N, awaiting return call. Will report to RN and assist with transferring patient when able.
[2025-06-08] MEDS: ROBINUL 0.2 MG IV (22:43)
[2025-06-08] MEDS: LEVSIN ORAL DROPS 0.125 MG SL (22:45)
[2025-06-09] MEDS: DILAUDID 0.25 MG IV ×3 (00:11→04:26)
[2025-06-09] MEDS: ROBINUL 0.2 MG IV (02:47)
[2025-06-09] MEDS: LEVSIN ORAL DROPS 0.125 MG SL (05:41)
--- NOTE | 2025-06-09 06:46 | W.PN.DEATH ---
Pronouncement of
-
Called to see patient to pronounce.
No spontaneous heart tones or respirations noted.
Patient not responsive to verbal stimuli.
Patient is pronounced .
Family is at the bed side
Time of : 06:05
Date of : 06/09/25
Family Notified: Yes
--- NOTE | 2025-06-09 07:31 | W.DCSUMMARY ---
Discharge Summary
Discharge Data
Date of Admission: 06/02/25
Date of Discharge: 06/09/25
-
Pending Results: No
Hospital Course
89M HFpEF afib HTN HLD CAD stents Depression presenting w/ weakness and pleural effusion. CHF with preserved EF, did not appear to be acute exacerbation
pBNP 3790. CXR: Dense opacification of the mid to lower left hemithorax which at least in part could represent pleural effusion. No pneumothorax.
Cardiology eval appreciated no acute exacerbation CHF. Per patient he did urinate a lot after IV Lasix in the ED. He has no lower extremity edema. Echo with preserved EF. CXR noted with opacity; CT noted with opacity. Pulmonary eval
appreciated. Status post Thora 06/03 removal of 1500 cc pleural fluid. Appeared exudative. Per family, has history of pneumonia. Monitor leukocytosis. cytology results pending. Thora was grossly bloody. Denied any hx of malignancy. Speech eval
appreciated okay for regular diet. Repeat Chest US appreciated Left moderate pleural effusion loculated, discussed with pulm, patient recommended for chest tube placement, IR consulted, transferred to IMU closer monitoring. Progressive
Leukocytosis, though consistently afebrile, ID eval appreciated started Unasyn and Azithromycin post chest tube placement. 06/08 patient developed Shock unclear etiology requiring pressor support Infectious vs hypovolemic/hypoalbuminemia. Given
prn Albumin infusions
wean pressor support as tolerated, started on midodrine 2.5 mg TID w/ holding parameters Levophed requirement at 7 mcg. Permanent atrial fibrillation,
rate controlled, patient on low-dose of Eliquis due to his history of hemorrhagic CVA. Patient follows with cardiology at [facility]. Hyponatremia progressively worsening, DAGOBERTO progressively worsening, SIADH, Hypoalbuminemia. UA not
suggestive of UTI. Nephro eval appreciated albumin infusions, samsca, hypertonic saline prn
Na improved but DAGOBERTO cont to worsen. Hyperkalemia, held home Aldactone, losartan. Status post Kayexalate, hyperkalemia since resolved. 06/08/25 Goals of Care discussion: Discussed with clinical abstractor, patient's Rose Mary, patient's daughter Luisa,
and patient's son Feng- patient/family in agreement with pursuing hospice/comfort care. Patient progressively declining, poor oral intake, failure to thrive, worsening DAGOBERTO, requiring pressor support, multiple comorbidities including Heart Failure
Afib CAD Anemia of Chronic Disease, advance age, now requiring pressor support. Patient's care updated in accordance to patient/family wishes. Patient soon passed overnight, condolences extended.
Discharge Plan
-
Patient Disposition:
Date/Time
Date/Time: 06/09/25 06:05
Discharge Date and Time
Discharge Date/Time: 06/09/25 06:05
Print Language: FINNISH
--- NOTE | 2025-06-09 10:57 | PTCARENOTE ---
pt on prior shift at 06. [facility] was called. paperwork filled out. IV access d/c and Chest tube clamped.
== END 2025-06-09 06:05 | disposition expired | DRG 187 ==
LOC: 2 NORTH 13:03
PROVIDERS: Internal Medicine; Nurse Practitioner; Nurse Practitioner Family; Radiology Vascular & Interventional Radiology; Specialist; ADMITTING PHYSICIAN Hospitalist; ATTENDING PHYSICIAN Internal Medicine; CONSULT PHYSICIAN Internal Medicine; CONSULT PHYSICIAN Internal Medicine Infectious Disease; CONSULT PHYSICIAN Internal Medicine Nephrology; EMERGENCY PHYSICIAN Student in an Organized Health Care Education/Training Program; FAMILY PHYSICIAN Family Medicine; OTHER PHYSICIAN Internal Medicine
PROC: 0W9B3ZZ Drainage of Left Pleural Cavity, Percutaneous Approach (ICD-10-PCS; 2025-06-03)
PROC: 0W9B30Z Drainage of Left Pleural Cavity with Drainage Device, Percutaneous Approach (ICD-10-PCS; 2025-06-07)
DX: J90 Pleural effusion, not elsewhere classified (principal); E22.2 Syndrome of inappropriate secretion of antidiuretic hormone; I13.0 Hypertensive heart and chronic kidney disease with heart failure and stage 1 through stage 4 chronic kidney disease, or unspecified chronic kidney disease; I50.32 Chronic diastolic (congestive) heart failure; I48.21 Permanent atrial fibrillation; N17.9 Acute kidney failure, unspecified; E87.20 Acidosis, unspecified; E78.00 Pure hypercholesterolemia, unspecified; I25.10 Atherosclerotic heart disease of native coronary artery without angina pectoris; F32.A Depression, unspecified; Z87.01 Personal history of pneumonia (recurrent); D72.829 Elevated white blood cell count, unspecified; E88.09 Other disorders of plasma-protein metabolism, not elsewhere classified; E87.5 Hyperkalemia; K90.0 Celiac disease; Z66 Do not resuscitate; N18.31 Chronic kidney disease, stage 3a; R62.7 Adult failure to thrive; D63.8 Anemia in other chronic diseases classified elsewhere; Z79.01 Long term (current) use of anticoagulants; Z86.73 Personal history of transient ischemic attack (TIA), and cerebral infarction without residual deficits; Z82.49 Family history of ischemic heart disease and other diseases of the circulatory system; Z79.899 Other long term (current) drug therapy; Z79.82 Long term (current) use of aspirin; I25.2 Old myocardial infarction; Z79.84 Long term (current) use of oral hypoglycemic drugs; Z95.5 Presence of coronary angioplasty implant and graft; Z11.52 Encounter for screening for COVID-19
CPT/HCPCS: 32555; 32557; 71045; 71046; 71250; 74176; 76604; 80048; 80053; 80061; 81003; 81015; 82150; 82248; 82570; 82945; 82962; 83615; 83735; 83880; 83930; 83935; 83986; 84100; 84132; 84155; 84156; 84157; 84300; 84478; 84484; 85025; 85027; 86480; 87015; 87070; 87081; 87116; 87205; 87502; 87811; 88112; 88305; 88341; 88342; 89051; 92610; 93005; 93306; 94640; 96361; 96374; 97116; 97162; 97167; 97530; 99152; 99153; 99285; P9045; P9047